=== PATIENT | female | born 1960 | race Caucasian/White ===

== ENCOUNTER → 2016-12-19 | Outpatient (REF) | payer BC | LOC: M LAB REF 12:20 | PROVIDERS: ATTEND Physician Assistant Medical | DX: J02.9 Acute pharyngitis, unspecified (principal) ==

== ENCOUNTER → 2018-02-04 | Outpatient (CLI) | payer BC ==
[~2018-02-04] MED LIST: ISOVUE-370 76% 100ML VIAL (Q9967) As Ordered
== END ==
LOC: M RAD 09:27
DX: R31.29 Other microscopic hematuria (principal)
CPT/HCPCS: Q9967

== ENCOUNTER → 2020-08-18 | Outpatient (CLI) | payer BC ==
[~2020-08-18] MED LIST changes: +ASPI81TA26 PO; +ATOR1TAB21; +BENA25TA5 PO; +BREO1INH3; -ISOVUE-370 76% 100ML VIAL (Q9967) As Ordered; +METO200T28 PO; +OMEP-221; +SYNT50TA; +VENTAER
== END ==
LOC: M LABSMTC 08:28
PROVIDERS: ATTEND Anesthesiology
DX: Z01.812 Encounter for preprocedural laboratory examination (principal); Z20.822 Contact with and (suspected) exposure to COVID-19

== ENCOUNTER 2020-08-23 09:39 | Day surgery (SDC) | payer BC ==
[~2020-08-23] VITALS: Ht 157.5 cm; Wt 72.6 kg
[~2020-08-23 09:39] MED LIST changes: +DUOVISC (0.50ML VISCOAT/0.55ML PROVISC) OPHTH KIT As Ordered ONE; +MIDAZOLAM INJ 2MG/2ML VIAL (J2250 PER 1MG) As Ordered ONE; +OFLOXACIN 0.3 % (OCUFLOX) OPTH SOL 5ML OD ONE; +PHENYLEPHRINE 2.5% OPHTH SOL 2ML OD ONE; +POVIDONE-IODINE 5% OPHTH PREP SOL 30ML As Ordered ONE; +PROPARACAINE 0.5% OPHTH SOL 15ML OD ONE; +TROPICAMIDE 1% OPHTH SOLN 2ML OD ONE; +fentaNYL 100 MCG/2 ML INJECTION (J3010) As Ordered ONE
--- OUTSIDE RECORDS SUMMARY | 2020-08-23 09:42 | CCD | Continuity of Care Document ---
Author Author Allergy Dept, [facility] Unknown Address [address] [address] Phone Unavailable Care Team Providers Care Pattern Cleaner Name Role Phone Peter Myers M.D. AUTM [phone] Problems Description No Information Available Social History Type Date Description Comments Sex Unknown Tobacco Use Start: Unknown Never Smoked Cigarettes ETOH Use Occasionally consumes alcohol Recreational Drug Use Denies Drug Use Allergies, Adverse Reactions, Alerts Active Allergies Reaction Severity Comments Date Cefdinir RASH 02/28/2015 Avelox 07/24/2008 Augmentin 07/15/2004 Inactive Allergies NKDA 01/28/2010 Medications Active Medications SIG Qnty Indications Ordering Provide r Date Medrol 4mg TBPK take as di rected 1units J20.9 Zaira Luciano NP 04/18/2019 Mucinex DM 30-600mg Tablets ER 12H R 1 by mouth twice a day 30tabs J20.9 Zaira Luciano NP 1 Azithromycin 250mg Tablets 500 mg by mouth on day one and 250 mg once a day days 2-5 6tabs J20.9 Zaira Luciano NP 04/18/2019 Aerochamber MV Misc u se with ventolin 1units Zaira Luciano NP 04/18/2019 Ventolin HFA 108(90Base) mcg/Act A erosol 2 inhalations as needed every 4-6 hours 8gm Zaira Paula NP 04/18/2019 Synthroid 50mcg Tablets 1 by mouth every day. 90tabs E03.9 Peter Myers M.D. 05/09 Lipitor 20mg Tablets 1 by mouth every night at bedtime. 90tabs E78.2 Peter Myers M.D. Aspirin 81mg Chewtabs qd Unknown Allergy Injections Unknown Flonase Allergy Relief 50mcg/Act Suspension 2 sprays each nostril daily Unknown Omeprazole 40mg Capsules DR 1 by mouth every day K21.9 Unknown Singulair 10mg Tablets 1 by mouth every day Unknown Immunizations Description No Information Available Vital Signs Date Vital Result Comment 08/02/2020 3:07pm Body Temperature 97.4 F 07/03/2020 3:16pm Body Temperature 97.2 F Results Description No Information Available Procedures Date Code Description Status 08/14/2020 95047 Allergy Antigens Single Or Multi ple Completed 08/02/2020 97572 Allergy Injection 2 Or More Comp leted 07/03/2020 60699 Allergy Injection 2 Or More Comp leted 06/21/2020 76279 Allergy Injection 2 Or More Comp leted 05/28/2020 91170 Allergy Antigens Single Or Multi ple Completed 05/24/2020 55349 Allergy Injection 2 Or More Comp leted 05/10/2020 07531 Allergy Injection 2 Or More Comp leted 04/26/2020 68552 Allergy Injection 2 Or More Comp leted 04/12/2020 24025 Allergy Injection 2 Or More Comp leted 03/29/2020 24697 Allergy Injection 2 Or More Comp leted 03/16/2020 77661 Allergy Antigens Single Or Multi ple Completed 03/15/2020 12542 Allergy Injection 2 Or More Comp leted 03/01/2020 36154 Allergy Injection 2 Or More Comp leted 02/16/2020 35775 Allergy Injection 2 Or More Comp leted Medical Devices Description No Information Available Encounters Description No Information Available Assessments Date Code Description Provider 08/14/2020 J30.1 Allergic rhinitis due to pollen Allergy Dept 08/14/2020 J30.2 Other seasonal allergic rhinitis Allergy Dept 08/14/2020 J30.81 Allergic rhinitis due to animal (cat) (dog) hair and dander Allergy Dept 08/02/2020 J30.1 Allergic rhinitis due to pollen Allergy Dept 08/02/2020 J30.2 Other seasonal allergic rhinitis Allergy Dept 08/02/2020 J30.81 Allergic rhinitis due to animal (cat) (dog) hair and dander Allergy Dept 07/03/2020 J30.1 Allergic rhinitis due to pollen Allergy Dept 07/03/2020 J30.2 Other seasonal allergic rhinitis Allergy Dept 07/03/2020 J30.81 Allergic rhinitis due to animal (cat) (dog) hair and dander Allergy Dept 06/21/2020 J30.1 Allergic rhinitis due to pollen Allergy Dept 06/21/2020 J30.2 Other seasonal allergic rhinitis Allergy Dept 06/21/2020 J30.81 Allergic rhinitis due to animal (cat) (dog) hair and dander Allergy Dept 05/28/2020 J30.1 Allergic rhinitis due to pollen Allergy Dept 05/28/2020 J30.2 Other seasonal allergic rhinitis Allergy Dept 05/28/2020 J30.81 Allergic rhinitis due to animal (cat) (dog) hair and dander Allergy Dept 05/24/2020 J30.1 Allergic rhinitis due to pollen Allergy Dept 05/24/2020 J30.2 Other seasonal allergic rhinitis Allergy Dept 05/24/2020 J30.81 Allergic rhinitis due to animal (cat) (dog) hair and dander Allergy Dept 05/10/2020 J30.1 Allergic rhinitis due to pollen Allergy Dept 05/10/2020 J30.2 Other seasonal allergic rhinitis Allergy Dept 05/10/2020 J30.81 Allergic rhinitis due to animal (cat) (dog) hair and dander Allergy Dept 04/26/2020 J30.1 Allergic rhinitis due to pollen Allergy Dept 04/26/2020 J30.2 Other seasonal allergic rhinitis Allergy Dept 04/26/2020 J30.81 Allergic rhinitis due to animal (cat) (dog) hair and dander Allergy Dept 04/12/2020 J30.1 Allergic rhinitis due to pollen Allergy Dept 04/12/2020 J30.2 Other seasonal allergic rhinitis Allergy Dept 04/12/2020 J30.81 Allergic rhinitis due to animal (cat) (dog) hair and dander Allergy Dept 03/29/2020 J30.1 Allergic rhinitis due to pollen Allergy Dept 03/29/2020 J30.2 Other seasonal allergic rhinitis Allergy Dept 03/29/2020 J30.81 Allergic rhinitis due to animal (cat) (dog) hair and dander Allergy Dept 03/16/2020 J30.1 Allergic rhinitis due to pollen Allergy Dept 03/16/2020 J30.2 Other seasonal allergic rhinitis Allergy Dept 03/16/2020 J30.81 Allergic rhinitis due to animal (cat) (dog) hair and dander Allergy Dept 03/15/2020 J30.1 Allergic rhinitis due to pollen Allergy Dept 03/15/2020 J30.2 Other seasonal allergic rhinitis Allergy Dept 03/15/2020 J30.81 Allergic rhinitis due to animal (cat) (dog) hair and dander Allergy Dept 03/01/2020 J30.1 Allergic rhinitis due to pollen Allergy Dept 03/01/2020 J30.2 Other seasonal allergic rhinitis Allergy Dept 03/01/2020 J30.81 Allergic rhinitis due to animal (cat) (dog) hair and dander Allergy Dept 02/16/2020 J30.1 Allergic rhinitis due to pollen Allergy Dept 02/16/2020 J30.2 Other seasonal allergic rhinitis Allergy Dept 02/16/2020 J30.81 Allergic rhinitis due to animal (cat) (dog) hair and dander Allergy Dept Plan of Treatment Future Appointment(s):* 10/22/2020 8:20 am - Allergy Dept at [facility] 210 * 08/30/2020 9:00 am - Allergy Dept at [place] [address] * 08/16/2020 3:00 pm - Allergy Dept at [place] [address] 04/18/2019 - Zaira Luciano NP* J20.9 Acute bronchitis, unspecified* New Medication:* Medrol 4 mg - take as directed * Mucinex DM 30-600 mg - 1 by mouth twice a day * Azithromycin 250 mg - 500 mg by mouth on day one and 250 mg once a day days 2-5 * Comments:* Patient has bronchitis. I am recommending a zpack , medrol dose pack and ventolin . She will not get her injection today. She may have her allergy injection next week if feeling better Functional Status Description No Information Available Mental Status Description No Information Available Referrals Description No Information Available
--- OUTSIDE RECORDS SUMMARY | 2020-08-23 09:42 | CCD ---
Continuity of Care Document (CCD) Created on: 08/21/2020 Hai Gilda External Reference #: [id number] : [id number] Sex: Female Author Author Allergy Dept, [facility] Unknown Address [address] [address] Phone Unavailable Care Team Providers Care Technician Trainee Name Role Phone Peter Myers M.D. AUTM [phone] Problems Description No Information Available Social History [...] Available Procedures Date Code Description Status 08/14/2020 80675 Allergy Antigens Single Or Multi ple Completed 08/02/2020 74043 Allergy Injection 2 Or More Comp leted 07/03/2020 48013 Allergy Injection 2 Or More Comp leted 06/21/2020 17708 Allergy Injection 2 Or More Comp leted 05/28/2020 99703 Allergy Antigens Single Or Multi ple Completed 05/24/2020 82913 Allergy Injection 2 Or More Comp leted 05/10/2020 28049 Allergy Injection 2 Or More Comp leted 04/26/2020 46163 Allergy Injection 2 Or More Comp leted 04/12/2020 39112 Allergy Injection 2 Or More Comp leted 03/29/2020 26469 Allergy Injection 2 Or More Comp leted 03/16/2020 09925 Allergy Antigens Single Or Multi ple Completed 03/15/2020 61417 Allergy Injection 2 Or More Comp leted 03/01/2020 10487 Allergy Injection 2 Or More Comp leted [...] 10/22/2020 8:20 am - Allergy Dept at [facility] 210 * 08/30/2020 9:00 am - Allergy Dept at [facility] 210 04/18/2019 - Zaira Luciano NP* J20.9 Acute [...]
--- OUTSIDE RECORDS SUMMARY | 2020-08-23 09:42 | CCD | Continuity of Care Document ---
Author Author Allergy Dept, [facility] Unknown Address [address] [address] Phone Unavailable Care Team Providers Care Truck Driving Instructor Name Role Phone Peter Myers M.D. AUTM Problems Description No Information Available Social History [...] Information Available Procedures Date Code Description Status 08/02/2020 61183 Allergy Injection 2 Or More Comp leted 07/03/2020 70362 Allergy Injection 2 Or More Comp leted 06/21/2020 63654 Allergy Injection 2 Or More Comp leted 05/28/2020 65394 Allergy Antigens Single Or Multi ple Completed 05/24/2020 32360 Allergy Injection 2 Or More Comp leted 05/10/2020 49801 Allergy Injection 2 Or More Comp leted 04/26/2020 68090 Allergy Injection 2 Or More Comp leted 04/12/2020 99248 Allergy Injection 2 Or More Comp leted 03/29/2020 66682 Allergy Injection 2 Or More Comp leted 03/16/2020 70892 Allergy Antigens Single Or Multi ple Completed 03/15/2020 85942 Allergy Injection 2 Or More Comp leted 03/01/2020 43983 Allergy Injection 2 Or More Comp leted 02/16/2020 65419 Allergy Injection 2 Or More Comp leted Medical Devices Description No Information Available Encounters Description No Information Available Assessments Date Code Description Provider 08/02/2020 J30.1 Allergic rhinitis due to pollen [...] Allergy Dept Plan of Treatment Future Appointment(s):* 08/30/2020 9:00 am - Allergy Dept at [facility] 210 * 08/16/2020 3:00 pm - Allergy Dept at [facility] 210 04/18/2019 - Zaira Luciano NP* J20.9 [...]
--- OUTSIDE RECORDS SUMMARY | 2020-08-23 09:42 | CCD | Continuity of Care Document ---
Author Author Allergy Dept, [facility] Unknown Address [address] [address] Phone Unavailable Care Team Providers Care Systems Mechanic Name Role Phone Peter Myers M.D. AUTM [phone] Problems Description No Information Available Social [...] Available Procedures Date Code Description Status 08/14/2020 16397 Allergy Antigens Single Or Multi ple Completed 08/02/2020 51644 Allergy Injection 2 Or More Comp leted 07/19/2020 69801 Allergy Injection 2 Or More Comp leted 07/03/2020 54701 Allergy Injection 2 Or More Comp leted 06/21/2020 73341 Allergy Injection 2 Or More Comp leted 05/28/2020 98600 Allergy Antigens Single Or Multi ple Completed 05/24/2020 86884 Allergy Injection 2 Or More Comp leted 05/10/2020 22157 Allergy Injection 2 Or More Comp leted 04/26/2020 31772 Allergy Injection 2 Or More Comp leted 04/12/2020 11253 Allergy Injection 2 Or More Comp leted 03/29/2020 96983 Allergy Injection 2 Or More Comp leted 03/16/2020 49002 Allergy Antigens Single Or Multi ple Completed 03/15/2020 13643 Allergy Injection 2 Or More Comp leted 03/01/2020 21373 Allergy Injection 2 Or More Comp leted [...] (cat) (dog) hair and dander Allergy Dept 07/19/2020 J30.1 Allergic rhinitis due to pollen Allergy Dept 07/19/2020 J30.2 Other seasonal allergic rhinitis Allergy Dept 07/19/2020 J30.81 Allergic rhinitis due to animal (cat) [...] 10/22/2020 8:20 am - Allergy Dept at [facility] 210 * 08/30/2020 9:00 am - Allergy Dept at [facility] 210 04/18/2019 - Zaira Luciano NP* [...]
--- OUTSIDE RECORDS SUMMARY | 2020-08-23 09:42 | CCD | Continuity of Care Document ---
Author Author Allergy Dept, [facility] Unknown Address [address] [address] Phone Unavailable Care Team Providers Care Mechanical Field Engineer Name Role Phone Peter Myers M.D. AUTM [...] Information Available Procedures Date Code Description Status 07/03/2020 14113 Allergy Injection 2 Or More Comp leted 06/21/2020 65825 Allergy Injection 2 Or More Comp leted 05/28/2020 81944 Allergy Antigens Single Or Multi ple Completed 05/24/2020 17069 Allergy Injection 2 Or More Comp leted 05/10/2020 95043 Allergy Injection 2 Or More Comp leted 04/26/2020 06710 Allergy Injection 2 Or More Comp leted 04/12/2020 18193 Allergy Injection 2 Or More Comp leted 03/29/2020 92993 Allergy Injection 2 Or More Comp leted 03/16/2020 13671 Allergy Antigens Single Or Multi ple Completed 03/15/2020 62368 Allergy Injection 2 Or More Comp leted 03/01/2020 30745 Allergy Injection 2 Or More Comp leted 02/16/2020 73545 Allergy Injection 2 Or More Comp leted 02/02/2020 08508 Allergy Injection 2 Or More Comp leted Medical Devices Description No Information Available Encounters Description No Information Available Assessments Date Code Description Provider 07/03/2020 J30.1 Allergic rhinitis due to pollen [...] (cat) (dog) hair and dander Allergy Dept 02/02/2020 J30.1 Allergic rhinitis due to pollen Allergy Dept 02/02/2020 J30.2 Other seasonal allergic rhinitis Allergy Dept 02/02/2020 J30.81 Allergic rhinitis due to animal (cat) (dog) hair and dander Allergy Dept Plan of Treatment Future Appointment(s):* 08/30/2020 9:00 am - Allergy Dept at [facility] 210 * 08/16/2020 3:00 pm - Allergy Dept at [facility] 210 * 08/06/2020 8:25 am - Allergy Dept at [facility] 210 04/18/2019 - Zaira Luciano NP* [...]
--- OUTSIDE RECORDS SUMMARY | 2020-08-23 09:43 | CCD | Continuity of Care Document ---
Author Author [facility] Organization Unknown Address [address] [place] [address] Phone [phone] Care Team Providers Care Visitor Information Assistant Name Role Phone Lauryn Keith MD AUTM [phone] Jaciel Wallace M.D. AUTM Osei Guerrier M.D. AUTM Mariam Moise MD AUTM [phone] Gerson Marx MD AUTM [phone] Jaciel Charles M.D. AUTM [phone] Ad Araujo MD AUTM [phone] Kelechi Parker MD AUTM [phone] Stephanie Arshad MD AUTM [phone] [facility] AUTM Tal Wallace M.D. AUTM [phone] Problems Active Problems Provider Date Hyperlipidemia Peter Myers MD Onset: 0 Hypothyroidism Peter Myers MD Onset: 0 Personal history of primary malignant neoplasm of breast Ana Lilia Caldwell PA-C Onset: 12/17/2010 Aortic valve disorder Onset: 08/08/2014 Chest pain Onset: 08/08/2014 Palpitations Onset: 05/14/2012 Electrocardiogram abnormal Onset: 2011 Pure hypercholesterolemia Onset: 012 Paroxysmal supraventricular tachycardia Dwight Bailey Onset: 06/15/2017 Microscopic hematuria Clifford Herrera Onset: 01/08/2018 Social History Type Date Description Comments Sex Female Tobacco Use Reviewed: 08/13/19 Never Smoked Cigarettes ETOH Use Currently consumes 4 glasses of wine weekly Recreational Drug Use Denies Drug Use Tobacco Use Reviewed: 02/29/20 Patient has never smoked Smoking Status Reviewed: 02/29/20 Patient has never smoked Allergies, Adverse Reactions, Alerts Active Allergies Reaction Severity Comments Date Augmentin 07/15/2004 Avelox Nausea 07/24/2008 Cefdinir Urticaria 05/08/2015 Medications Active Medications SIG Qnty Indications Ordering Provide r Date Breo Ellipta 200-25mcg/Inh Aerosol 1 in every day 90units R05 Osmar Gardner MD 020 Atorvastatin Calcium 20mg Tablets 1 by mouth every day 90tabs Peter Myers MD 02/06/20 20 Montelukast Sodium 10mg Tablets 1 by mouth every day 90tabs Peter Myers MD 07/26/19 20 Synthroid 50mcg Tablets 1 by mouth every day. 90tabs E03.9 Peter Myers MD 05/09/20 15 E03.8 Aspirin 81mg Chewtabs 1 PO qd Peter Myers MD 07/15/[address] 1 by mouth every day K21.9 Unknown Metoprolol Succinate ER 50mg Tablets ER 24HR 1/2 by mouth every day Unknown 00/0 Albuterol Sulfate HFA 108(90Base) mcg/Act Aerosol 1-2 puffs every 4-6 hours as needed sob/wheezing Unknown History Medications Atorvastatin Calcium 20mg Tablets 1 by mouth every day 30tabs E78.2 Peter Myers MD 02/06/20 20 - 06/28/2020 Breo Ellipta 100-25mcg/Inh Aerosol 1 in every day 90units R05 Osmar Gardner MD 020 - 06/28/2020 Immunizations CPT Code Status Date Vaccine Lot # [id number] Given 03/29/2020 Flu, Multi-Dose Vial W/Preservative (Age 6Mo And Up)Quad 0.5 42232 Given 06/14/2018 Adacel - Tdap [id number] 31110 Given 04/14/2014 Flu, Multi-Dose Vial W/Preservative (Age 6Mo And Up)Quad 0.5 60277 Given 04/13/2013 Flu Shot 3 Yrs And Above (Mu lti Dose Vial) 37377 Given 03/19/2011 Flu Shot 3 Yrs And Above (Mu lti Dose Vial) [id number] 75742 Given 12/13/2009 Adacel - Tdap [id number] 67613 Given 05/07/2006 Flu Shot 3 Yrs And Above (Mu lti Dose Vial) 05038 Refused 07/26/2019 Flu, Multi-Dose Vial W/Preservative (Age 6Mo And Up)Quad 0.5 29205 Refused 05/21/2017 Flu, Multi-Dose Vial W/Preservative (Age 6Mo And Up)Quad 0.5 84777 Refused 05/22/2016 Flu, Multi-Dose Vial W/Preservative (Age 6Mo And Up)Quad 0.5 Vital Signs Date Vital Result Comment 06/28/2020 3:18pm BP Systolic 124 mmHg BP Diastolic 78 mmHg Heart Rate 76 /min Body Temperature 98.5 F Respiratory Rate 12 /min Weight 166.00 lb Weight 75.298 kg Height 62 inches 5'2" BMI (Body Mass Index) 30.4 kg/m2 [place] Body Weight 110 lb 02/29/2020 8:11am BP Systolic 124 mmHg BP Diastolic 80 mmHg Heart Rate 90 /min Body Temperature 98.0 F Respiratory Rate 16 /min Weight 160.00 lb Weight 72.576 kg Height 62 inches 5'2" BMI (Body Mass Index) 29.3 kg/m2 [place] Body Weight 110 lb O2 % BldC Oximetry 98 % Results Test Acquired Date Facility Test Result H/L Range Note Laboratory test finding 06/28/2020 [facility] TSH 2.093 uIU/mL 0.350-4.940 Free T4 1.12 ng/dL 0.70-1.48 Lipid Panel(New) 06/28/2020 [facility] Cholesterol 196 mg/dL 112-200 1 Triglyceride 346 mg/dL High 1-200 2 HDL 52 mg/dL 30-85 3 Cholesterol/HDL 3.77 Low 4.00-6.70 NHDL 144.00 mg/dL High 0.00-100.00 4 Calculated LDL 74.80 mg/dL 20.00-130.00 5 Comprehensive Metabolic Panel 06/28/2020 [facility] Glucose 81.00 mg/dL 70.00-110.00 Urea Nitrogen 21 mg/dL 8-21 Creatinine 0.9 mg/dL 0.6-1.1 GFR 68.75 mL/min 6 Sodium 141 mmol/L 136-145 Potassium 4.5 mmol/L 3.5-5.1 Chloride 104 mmol/L 98-107 Total Protein 7.4 g/dL 6.4-8.3 Albumin 4.20 g/dL 3.30-5.00 Alanine Aminotransferase 16 U/L 0-55 Aspartate Aminotransferase 15 U/L 5-34 Alkaline Phosphatase 113 U/L 40-150 Carbon Dioxide 28.00 mmol/L 22.00-31.00 Albumin/Globulin 1.31 Ratio Osmolality 294.00 275.00-295.00 Calcium 9.50 mg/dL 8.90-10.40 Total Bilirubin 0.4 mg/dL 0.2-1.2 Globulin 3.20 2.30-4.20 BUN/Creatinine 23.60 Ratio CBC/Automated Differential 01/20/2020 [facility] WBC 9.78 k/uL 4.60-10.20 Abs Neut 6.07 2.00-7.50 % Neut 62.1 % 37.0-80.0 Abs Lymphs 2.12 K/UL 1.20-4.80 % Lymphs 21.7 % 10.0-50.0 Abs Monos 0.992 High 0.000-0.900 % Monos 10.10 % 0.00-12.00 Abs Eos 0.485 0.000-0.700 % Eos 4.96 % 0.00-7.00 Abs Basos 0.109 0.000-0.200 % Baso 1.12 % 0.00-4.00 RBC 4.85 m/uL 4.04-6.13 Hemoglobin 14.0 g/dL 12.2-18.1 Hematocrit 41.1 % 37.7-47.0 MCV 84.7 fL 80.0-97.0 MCH 28.9 pg 27.0-31.2 MCHC 34.1 g/dL 31.8-35.4 RDW 11.9 % 11.6-14.8 Platelet 251 K/uL 142-424 MPV 7.4 fL 0.0-99.9 Comprehensive Metabolic Panel 01/20/2020 [facility] Glucose 103.00 mg/dL 70.00-110.00 Urea Nitrogen 15 mg/dL 7-19 Creatinine 1.0 mg/dL 0.6-1.1 GFR 60.89 mL/min 7 Sodium 141 mmol/L 136-145 Potassium 4.2 mmol/L 3.5-5.1 Chloride 105 mmol/L 98-107 Total Protein 7.3 g/dL 6.4-8.3 Albumin 4.30 g/dL 3.30-5.00 Alanine Aminotransferase 13 U/L 0-55 Aspartate Aminotransferase 19 U/L 5-34 Alkaline Phosphatase 105 U/L 40-150 Carbon Dioxide 24.00 mmol/L 22.00-31.00 Albumin/Globulin 1.43 Ratio Osmolality 293.08 275.00-295.00 Calcium 9.20 mg/dL 8.90-10.40 Total Bilirubin 0.6 mg/dL 0.2-1.2 Globulin 3.00 2.30-4.20 BUN/Creatinine 15.15 Ratio Laboratory test finding 01/20/2020 [facility] Screen with Reflex NEGATIVE (Neg) 8 Ftsao-7-Kpywueaatkh,Ser 130.0 mg/dL (90-200) 9 TSH 2.272 uIU/mL 0.350-4.940 Free T4 1.06 ng/dL 0.70-1.48 1 GOAL LESS THAN 200 2 GOAL LESS THAN 200 3 GOAL GREATER THAN 45 4 GOAL LESS THAN 100 5 GOAL LESS THAN 100 6 NORMAL FUNCTION OR MILD ROBLES L DISEASE:>60 ml/min ADVANCED RENAL DISEASE:15-59 ml/min RENAL FAILURE:<15 ml/min 7 NORMAL FUNCTION OR MILD ROBLES L DISEASE:>60 ml/min ADVANCED RENAL DISEASE:15-59 ml/min RENAL FAILURE:<15 ml/min 8 Unless otherwise specified, testing performed by [place] [address] 9 Unless otherwise specified, testing performed by [facility] [place] [address] Procedures Date Code Description Status 03/14/2020 [id number] Mammogram Completed 01/20/2020 83785 Spirometry Completed 02/17/2013 [id number] Bone Mineral Density Test Comple jeannine 11/19/2009 [id number] Mammogram Completed 07/13/2009 [id number] Colonoscopy Completed 11/20/2008 [id number] Mammogram Completed Medical Devices Description No Information Available Encounters Type Date Location Provider Dx Diagnosis Office Visit 06/28/2020 3:[address]p [address] Peter Myers MD E78 .5 Hyperlipidemia, unspecified E03.9 Hypothyroidism, unspecified J45.998 Other asthma Office Visit 02/29/2020 8:[address]a [address] Osmar Gardner MD R06.02 Shortness of breath Office Visit 01/20/2020 1:[address]p [address] Osmar Gardner MD R05 Cough R06.02 Shortness of breath J45.998 Other asthma Assessments Date Code Description Provider 06/28/2020 E78.5 Hyperlipidemia, unspecified Will Myers MD 06/28/2020 E03.9 Hypothyroidism, unspecified Will Myers MD 06/28/2020 J45.998 Other asthma Peter ty MD 02/29/2020 R06.02 Shortness of breath Osmar Gardner MD 01/20/2020 R05 Cough Osmar medeiros MD 01/20/2020 R06.02 Shortness of breath Osmar Gardner MD 01/20/2020 J45.998 Other asthma Osmar medeiros MD Plan of Treatment 06/28/2020 - Peter Myers MD* E78.5 Hyperlipidemia, unspecified* Comments:* Will check labs and adjust medication as indicated. Continue low fat low cholesterol diet, exercise as tolerated. * Follow up:* * E03.9 Hypothyroidism, unspecified* Comments:* check labs, adjust medication if indicated * Follow up:* * J45.998 Other asthma* Comments:* Spirometry shows copd, she may have component of both copd & asthma, thuswill Increase Breo to 200-25 per day. If this is helping, follow up in November/December. Sooner with concerns. * All * New Medication:* Breo Ellipta 200-25 mcg/Inh - 1 in every day Functional Status Functional Condition Comment Date Status Glasses Active Hearing Aid in left ear Active Mental Status Description No Information Available Referrals Refer to Reason for Referral Status Appt Date [facility] chest w/o contrast to r/o interstitial lung disease. Closed [address] [place] [address] [phone]
--- OUTSIDE RECORDS SUMMARY | 2020-08-23 09:43 | CCD | Continuity of Care Document ---
Author Author Gilda MYERS MD Organization Unknown Address [address] [place] [address] Phone [phone] Care Team Providers Care Network Designer Name Role Phone Lauryn Keith MD AUTM [phone] Jaciel Wallace M.D. AUTM [phone] Osei Guerrier M.D. AUTM [phone] Mariam Moise MD AUTM [phone] Gerson Marx MD AUTM [phone] Jaciel Charles M.D. AUTM [phone] Ad Araujo MD AUTM [phone] Kelechi Parker MD AUTM [phone] Stephanie Arshad MD AUTM [phone] [facility]M Tal Wallace M.D. AUTM [phone] Problems Active Problems Provider Date Hyperlipidemia Peter [...] CPT Code Status Date Vaccine Lot # [id number] Given 03/29/2020 Flu, Multi-Dose Vial W/Preservative (Age 6Mo And Up)Quad 0.5 69988 Given 06/14/2018 Adacel - Tdap [id number] 63327 Given 04/14/2014 Flu, Multi-Dose Vial W/Preservative (Age 6Mo And Up)Quad 0.5 07631 Given 04/13/2013 Flu Shot 3 Yrs And Above (Mu lti Dose Vial) 51445 Given 03/19/2011 Flu Shot 3 Yrs And Above (Mu lti Dose Vial) [id number] 56443 Given 12/13/2009 Adacel - Tdap [id number] 17938 Given 05/07/2006 Flu Shot 3 Yrs And Above (Mu lti Dose Vial) 11381 Refused 07/26/2019 Flu, Multi-Dose Vial W/Preservative (Age 6Mo And Up)Quad 0.5 33210 Refused 05/21/2017 Flu, Multi-Dose Vial W/Preservative (Age 6Mo And Up)Quad 0.5 56147 Refused 05/22/2016 Flu, Multi-Dose Vial W/Preservative (Age 6Mo And Up)Quad 0.5 Vital Signs Date Vital Result Comment 06/28/2020 3:18pm BP Systolic 124 mmHg BP Diastolic 78 mmHg Heart Rate 76 /min Body Temperature 98.5 F Respiratory Rate 12 /min Weight 166.00 lb Weight 75.298 kg Height 62 inches 5'2" BMI (Body Mass Index) 30.4 kg/m2 [place] [facility] Weight 110 lb 02/29/2020 8:11am BP Systolic 124 mmHg BP Diastolic 80 mmHg Heart Rate 90 /min Body Temperature 98.0 F Respiratory Rate 16 /min Weight 160.00 lb Weight 72.576 kg Height 62 inches 5'2" BMI (Body Mass Index) 29.3 kg/m2 [place] [facility] Weight 110 lb O2 % BldC Oximetry 98 % Results Test Acquired Date Facility Test Result H/L Range Note Laboratory test finding 06/28/2020 [facility] TSH <pending> Free T4 <pending> CBC/Automated Differential 01/20/2020 [facility] WBC 9.78 [...] Creatinine 1.0 mg/dL 0.6-1.1 GFR 60.89 mL/min 1 Sodium 141 mmol/L 136-145 Potassium 4.2 mmol/L [...] BUN/Creatinine 15.15 Ratio Laboratory test finding 01/20/2020 [facility] Makayla Screen with Reflex NEGATIVE (Neg) 2 Velvn-5-Fmvcojfiqkz,Ser 130.0 mg/dL (90-200) 3 TSH 2.272 uIU/mL 0.350-4.940 Free T4 1.06 ng/dL 0.70-1.48 1 NORMAL FUNCTION OR MILD ROBLES L DISEASE:>60 ml/min ADVANCED RENAL DISEASE:15-59 ml/min RENAL FAILURE:<15 ml/min 2 Unless otherwise specified, testing performed by Laboratory [facility] [address] [place] [address] 3 Unless otherwise specified, testing performed by Laboratory [facility] [address] [place] [address] Procedures Date Code Description Status 03/14/2020 03404161 Mammogram Completed 01/20/2020 25410 Spirometry Completed 02/17/2013 970702490 Bone Mineral Density Test Comple jeannine 11/19/2009 [id number] Mammogram Completed 07/13/2009 [id number] Colonoscopy Completed 11/20/2008 [id number] Mammogram Completed Medical Devices Description No Information Available Encounters Type Date Location Provider Dx Diagnosis Office Visit 02/29/2020 8:00a [address] B [...] diet, exercise as tolerated. * Follow up:* Followup:. (Follow up) * E03.9 Hypothyroidism, unspecified* Follow up:* Followup:. (Follow up) * J45.998 Other asthma* Comments:* Increase Breo to 200-25 per day. If [...] to r/o interstitial lung disease. Closed [address] [place] [address] [phone]
--- OUTSIDE RECORDS SUMMARY | 2020-08-23 09:43 | CCD | Continuity of Care Document ---
Author Author Allergy Dept, [facility] Organization Unknown Address [address] [address] Phone Unavailable Care Team Providers Care Head Of English Name Role Phone Peter Myers M.D. AUTM [...] Available Vital Signs Date Vital Result Comment 07/03/2020 3:16pm Body Temperature 97.2 F 06/21/2020 3:07pm Body Temperature 97.3 F Results Description No Information Available Procedures Date Code Description Status 06/21/2020 59716 Allergy Injection 2 Or More Comp leted 05/28/2020 90767 Allergy Antigens Single Or Multi ple Completed 05/24/2020 25216 Allergy Injection 2 Or More Comp leted 05/10/2020 45197 Allergy Injection 2 Or More Comp leted 04/26/2020 71399 Allergy Injection 2 Or More Comp leted 04/12/2020 41513 Allergy Injection 2 Or More Comp leted 03/29/2020 33301 Allergy Injection 2 Or More Comp leted 03/16/2020 04968 Allergy Antigens Single Or Multi ple Completed 03/15/2020 90758 Allergy Injection 2 Or More Comp leted 03/01/2020 45621 Allergy Injection 2 Or More Comp leted 02/16/2020 30198 Allergy Injection 2 Or More Comp leted 02/02/2020 75750 Allergy Injection 2 Or More Comp leted 01/03/2020 99665 Allergy Injection 2 Or More Comp leted Medical Devices Description No Information Available Encounters Description No Information Available Assessments Date Code Description Provider 06/21/2020 J30.1 Allergic rhinitis due to pollen [...] (cat) (dog) hair and dander Allergy Dept 01/03/2020 J30.1 Allergic rhinitis due to pollen Allergy Dept 01/03/2020 J30.2 Other seasonal allergic rhinitis Allergy Dept Plan of Treatment Future Appointment(s):* 08/02/2020 3:00 pm - Allergy Dept at [facility] 210 * 07/19/2020 3:00 pm - Allergy Dept at [facility] 210 * 08/06/2020 8:25 am [facility] [...]
--- OUTSIDE RECORDS SUMMARY | 2020-08-23 09:43 | CCD ---
Author Author Mitesh Robles MD [facility] Organization Mitesh Robles MD [facility] Address [address] [address] Phone Care Team Providers Care Senior Capital Markets Specialist Name Role Phone Joseph Anguiano DO Unavailable [phone] Reason for Referral No Reason for Referral Recorded Problems Includes: Active, inactive, and resolved Problems All Visits Onset Date - Time Resolved Date - Time Provider Co ndition Status Essential Hypertension 06/20/2020 - 12:00AM Joseph maravilla DO Active Vitreous Disorders Degeneration 06/20/2020 - 12:00AM Jv Anguiano DO Active Macular Degeneration Nonexudative Bilateral Early Dry Stage 01/17/2019 - 12:00AM Joseph Anguiano DO Active Cataract Senile Anterior Subcapsular Polar 01/17/2019 - 12:00AM Joseph Anguiano DO Active Cataract Senile Cortical 01/17/2019 - 12:00AM Joseph Anguiano DO Active Chorioretinal Scar 01/17/2019 - 12:00AM Joseph tan DO Active Dry Eye Syndrome 01/17/2019 - 12:00AM Joseph reyes DO Active Plan of Treatment Future Appointments Date Time Location Provider 1 WK PREOP FOR SURGERY 08/14/2020 12:40PM Mitesh Kong [facility] Joseph Anguiano DO Extracapsular cataract removal w/IOL implant 08/23/2020 7:1 0AM [facility] Joseph Anguiano DO SAME DAY POST OP 08/23/2020 1:20PM [facility] Joseph Anguiano DO 1 Week Post OP 08/31/2020 12:40PM Mitesh Robles MD [facility] Jv Anguiano DO Assessments Includes: Assessments for all patient encounters Findings Encounter Date Anterior subcapsular polar senile cataract 6 Month Fol low-Up with Joseph Anguiano DO 06/18/2020 Chorioretinal scar 6 Month Follow-Up with Joseph Anguiano DO 06/18/2020 Cortical senile cataract 6 Month Follow-Up with Joseph dahl DO 06/18/2020 Dry eye syndrome 6 Month Follow-Up with Joseph Anguiano DO 06/18/2020 Early dry stage nonexudative macular degeneration of b oth eyes 6 Month Follow-Up with Joseph Anguiano DO 06/18/2020 Essential hypertension 6 Month Follow-Up with Joseph Marin ein DO 06/18/2020 Vitreous degeneration 6 Month Follow-Up with Joseph Curran in DO 06/18/2020 Anterior subcapsular polar senile cataract 6 Month Fol low-Up with OCT Retina with Joseph Anguiano DO 07/20/2019 Chorioretinal scar 6 Month Follow-Up with OCT Retina with Jv Anguiano DO 07/20/2019 Cortical senile cataract 6 Month Follow-Up with OCT R etina with Joseph Anguiano DO 07/20/2019 Dry eye syndrome 6 Month Follow-Up with OCT Retina with aristeo Anguiano DO 07/20/2019 Early dry stage nonexudative macular degeneration of b oth eyes 6 Month Follow-Up with OCT Retina with Joseph Anguiano DO 07/20/2019 Essential hypertension 6 Month Follow-Up with OCT R etina with Joseph Anguiano DO 07/20/2019 Anterior subcapsular polar senile cataract NEW PATIENT WITH REFERRAL with Joseph Anguiano DO 01/17/2019 Chorioretinal scar NEW PATIENT WITH REFERRAL with Joseph schmitz DO 01/17/2019 Cortical senile cataract NEW PATIENT WITH REFERRAL with Negro Anguiano DO 01/17/2019 Dry eye syndrome NEW PATIENT WITH REFERRAL with Joseph schmitz DO 01/17/2019 Early dry stage nonexudative macular degeneration of b oth eyes NEW PATIENT WITH REFERRAL with Joseph Anguiano DO 01/17/2019 Essential hypertension NEW PATIENT WITH REFERRAL with Joni Anguiano DO 01/17/2019 Instructions Instructions not supported for this document typeNo Instructions Recorded Medical Equipment - Implanted Devices Includes: Current and historical DevicesNo Medical Equipment Recorded Medications Includes: Current and historical Medications Current Medications (continue as prescribed) Breo Ellipta 100-25 MCG/INH Inhalation Aerosol Powder Breath Activated 06/18/2020 Provider: Diagnosis: 1 puff daily Montelukast Sodium 10 MG Oral Tablet 06/18/2020 Pro vider: Diagnosis: Metoprolol 25 MG Oral Tablet 07/20/2019 Provider: Diagnosis: Synthroid 50MCG Oral Tablet 01/17/2019 Provider: Diagnosis: Atorvastatin 20 MG Oral Tablet 01/17/2019 Provider: Diagnosis: Aspirin 81MG Oral Tablet Delayed Release 01/17/2019 Provider: Diagnosis: Omeprazole 40MG Oral Capsule Delayed Release 01/17/2019 Provider: Diagnosis: diphenhydrAMINE HCl 25MG Oral Tablet 01/17/2019 Pro vider: Diagnosis: Past Medications on file Metoprolol 50 mg Oral Tablet 01/17/2019 - 07/20/2019 Provide r: Diagnosis: Medications Administered Includes: Administered Medications in patient's chartNo Administered Medications Recorded Vital Signs Includes: Vital Signs from 06/20/2019 through 06/20/2020No Vital Signs Recorded For Specified Dates Results Includes: Results from 06/20/2019 through 06/20/2020No Results Recorded For Specified Dates History of Present Illness History of Present Illness not supported for this document typeNo History of Present Illness Recorded Social History Description Last Updated Alcohol use 1-2 drinks a week 06/18/2020 No tobacco use 06/18/2020 Not using drugs 06/18/2020 Smoking status : Never smoker 06/18/2020 Procedures and Surgical History Includes: Procedures from 06/20/2019 through 06/20/2020 Procedures Code Diagnosis Performing Provider Service Location Service Date Intermediate Eye Exam Established Patient 07565 Nexdtve age-related mclr degn, bilateral, early dry stage, Essential (primary) hypertension, Anterior subcapsular polar age-related cataract, bilateral, Cortical age-related cataract, bilateral Joseph Anguiano DO 06/18/2020 Comprehensive eye exam established patient (Signi/Sep Eval. & Man.) 85470 Nexdtve age-related mclr degn, bilateral, early dry stage, Essential (primary) hypertension, Anterior subcapsular polar age-related cataract, bilateral, Cortical age-related cataract, bilateral Joseph Walker MD [facility] 07/20/2019 [facility] Ret[facility], with interpretation and re port (WAIVER OF LIABILITY ON FILE (ABN)) 15168 Nexdtve age-related mclr deg n, bilateral, early dry stage, Essential (primary) hypertension Joseph Rod MD [facility] 07/20/2019 Surgical History Last Updated Surgical / procedural history 1989, Mastectomy 1996, Hysterectomy 2010, Heart Ablation 2016 06/20/2020 Medical History Includes: Medical History in patient's chart Description Last Updated Currently wearing eyeglasses 06/18/2020 History of essential hypertension 06/18/2020 History of hyperlipidemia 06/18/2020 History of hypertension 06/18/2020 Hypothyroidism 06/18/2020 No recent change in medical history 06/18/2020 Reported medical history Breast Cancer 1996, acid ref lux 06/18/2020 Family History Includes: Family History in patient's chart Description Last Updated Maternal history of arthritis 06/18/2020 Maternal history of cataract 06/18/2020 Maternal history of thyroid disorder 06/18/2020 Paternal history of family history of cancer 0 Paternal history of heart disease 06/18/2020 Review of Systems Review of Systems not supported for this document typeNo Review of Systems Recorded Mental Status Mental Status not supported for this document type Description Oriented to time, place, and person Functional Status Functional Status not supported for this document typeNo Functional Status Recorded Physical Exam Physical Exam not supported for this document typeNo Physical Exam Recorded Immunizations Includes: Immunizations in patient's chartNo Immunizations Recorded Allergies Includes: Active, inactive, and resolved Allergies Substance Type Reaction Onset Date - Time Resolved Date - Ti me Status Avalox Allergy 07/20/2019 - 12:00AM Acti ve Augmentin Allergy 01/17/2019 - 12:00AM Acti ve Encounters Includes: Encounters from 06/20/2019 through 06/20/2020 Encounter Provider Location Date Check-In Time Check-Out Time D iagnosis 6 Month Follow-Up Joseph Rod MD [facility] 01/2020 9:51AM 11:35AM Essential Hypertension, Tegan ract Senile Anterior Subcapsular Polar, Cataract Senile Cortical, Dry Eye Syndrome, Chorioretinal Scar, Macular Degeneration Nonexudative Bilateral Early Dry Stage, Vitreous Disorders Degeneration 6 Month Follow-Up with OCT Retina Joseph Chowdhury MD [facility] 07/20/2019 2:52PM 4:06PM Essential Hypertensi on, Macular Degeneration Nonexudative Bilateral Early Dry Stage, Dry Eye Syndrome, Chorioretinal Scar, Cataract Senile Anterior Subcapsular Polar, Cataract Senile Cortical Insurance Includes: Active Insurance Policies Plan Name Member ID Group # Subscriber Relationship Effective Da barrera 1 - [employer] CARLITO/ROMERO [id number] [facility] Advance Directives Includes: Current Advance DirectivesNo Advance Directives Recorded Health Concerns Includes: Active Health ConcernsNo Active Health Concerns Recorded Goals Includes: Active GoalsNo Active Goals Recorded Interventions Includes: Interventions for active GoalsNo Interventions Recorded Evaluations & Outcomes Includes: Evaluations & Outcomes for active GoalsNo Outcomes Recorded
--- OUTSIDE RECORDS SUMMARY | 2020-08-23 09:43 | CCD | Continuity of Care Document ---
Author Author Allergy Dept, [facility] Organization Unknown Address [address] [address] Phone Unavailable Care Team Providers Care Butter Wrapper Name Role Phone Peter Myers M.D. AUTM [phone] Problems Description No Information Available Social History [...] Available Vital Signs Date Vital Result Comment 06/21/2020 3:07pm Body Temperature 97.3 F 05/10/2020 3:04pm Body Temperature 98.1 F Results Description No Information Available Procedures Date Code Description Status 05/28/2020 54391 Allergy Antigens Single Or Multi ple Completed 05/24/2020 05807 Allergy Injection 2 Or More Comp leted 05/10/2020 48359 Allergy Injection 2 Or More Comp leted 04/26/2020 12409 Allergy Injection 2 Or More Comp leted 04/12/2020 14654 Allergy Injection 2 Or More Comp leted 03/29/2020 24565 Allergy Injection 2 Or More Comp leted 03/16/2020 14422 Allergy Antigens Single Or Multi ple Completed 03/15/2020 43829 Allergy Injection 2 Or More Comp leted 03/01/2020 12662 Allergy Injection 2 Or More Comp leted 02/16/2020 24787 Allergy Injection 2 Or More Comp leted 02/02/2020 25522 Allergy Injection 2 Or More Comp leted 01/03/2020 50443 Allergy Injection 2 Or More Comp leted Medical Devices Description No Information Available Encounters Description No Information Available Assessments Date Code Description Provider 05/28/2020 J30.1 Allergic rhinitis due to pollen [...] Allergy Dept Plan of Treatment Future Appointment(s):* 07/03/2020 3:15 pm - Allergy Dept at [facility] 210 * 08/06/2020 8:25 am - Allergy Dept at [place] [address] 04/18/2019 - Zaira Luciano NP* J20.9 Acute [...]
--- OUTSIDE RECORDS SUMMARY | 2020-08-23 09:43 | CCD | Continuity of Care Document ---
Author Author Allergy Dept, [facility] [place] Unknown Address [address] [address] Phone Unavailable Care Team Providers Care Sort Worker Name Role Phone Peter Myers M.D. AUTM [...] Available Procedures Date Code Description Status 07/03/2020 60920 Allergy Injection 2 Or More Comp leted 06/21/2020 97715 Allergy Injection 2 Or More Comp leted 05/28/2020 93098 Allergy Antigens Single Or Multi ple Completed 05/24/2020 35378 Allergy Injection 2 Or More Comp leted 05/10/2020 82825 Allergy Injection 2 Or More Comp leted 04/26/2020 39276 Allergy Injection 2 Or More Comp leted 04/12/2020 94533 Allergy Injection 2 Or More Comp leted 03/29/2020 15723 Allergy Injection 2 Or More Comp leted 03/16/2020 97500 Allergy Antigens Single Or Multi ple Completed 03/15/2020 77613 Allergy Injection 2 Or More Comp leted 03/01/2020 54413 Allergy Injection 2 Or More Comp leted 02/16/2020 16704 Allergy Injection 2 Or More Comp leted 02/02/2020 65825 Allergy Injection 2 Or More Comp [...] 08/02/2020 3:00 pm - Allergy Dept at [facility] 210 * 08/06/2020 8:25 am - Allergy Dept at [place] [address] 04/18/2019 - Zaira Luciano NP* J20.9 Acute [...]
--- OUTSIDE RECORDS SUMMARY | 2020-08-23 09:43 | CCD | Continuity of Care Document ---
Author Author Gilda MYERS MD Organization Unknown Address [address] [place] [address] Phone [phone] Care Team Providers Care Culvert Installer Name Role Phone Lauryn Keith MD AUTM [phone] Jaciel Wallace M.D. AUTM [phone] Osei Guerrier M.D. AUTM Mariam Moise MD AUTM [phone] Gerson Marx MD AUTM [phone] Jaciel Charles M.D. AUTM [phone] Ad Araujo MD AUTM [phone] eKlechi Parker MD AUTM [phone] Stephanie Arshad MD AUTM [phone] [facility] AUTM [phone] Tal Wallace M.D. AUTM [phone] Problems Active Problems Provider Date Hyperlipidemia Peter [...] CPT Code Status Date Vaccine Lot # [id number] Given 03/29/2020 Flu, Multi-Dose Vial W/Preservative (Age 6Mo And Up)Quad 0.5 83901 Given 06/14/2018 Adacel - Tdap [id number] 04760 Given 04/14/2014 Flu, Multi-Dose Vial W/Preservative (Age 6Mo And Up)Quad 0.5 39419 Given 04/13/2013 Flu Shot 3 Yrs And Above (Mu lti Dose Vial) 50990 Given 03/19/2011 Flu Shot 3 Yrs And Above (Mu lti Dose Vial) [id number] 78483 Given 12/13/2009 Adacel - Tdap [id number] 63139 Given 05/07/2006 Flu Shot 3 Yrs And Above (Mu lti Dose Vial) 25751 Refused 07/26/2019 Flu, Multi-Dose Vial W/Preservative (Age 6Mo And Up)Quad 0.5 59718 Refused 05/21/2017 Flu, Multi-Dose Vial W/Preservative (Age 6Mo And Up)Quad 0.5 13164 Refused 05/22/2016 Flu, Multi-Dose Vial W/Preservative (Age 6Mo And Up)Quad 0.5 Vital Signs Date Vital Result Comment 06/28/2020 3:18pm BP Systolic 124 mmHg BP Diastolic 78 mmHg Heart Rate 76 /min Body Temperature 98.5 F Respiratory Rate 12 /min Weight 166.00 lb Weight 75.298 kg Height 62 inches 5'2" BMI (Body Mass Index) 30.4 kg/m2 [place] Body Weight 110 lb 02/29/2020 8:11am BP Systolic 124 mmHg BP Diastolic 80 mmHg Heart Rate 90 /min Body Temperature 98.0 F Respiratory Rate 16 /min Weight 160.00 lb Weight 72.576 kg Height 62 inches 5'2" BMI (Body Mass Index) 29.3 kg/m2 [place] Body Weight 110 lb O2 % BldC [...] Makayla Screen with Reflex NEGATIVE (Neg) 8 Cyjul-6-Hxifinrwkrm,Ser 130.0 mg/dL (90-200) 9 TSH 2.272 uIU/mL [...] Unless otherwise specified, testing performed [place] [address] 9 Unless otherwise specified, testing performed by Laboratory [facility] [place] [address] Procedures Date Code Description Status 06/28/2020 64143 Oximetry Single Determination Co mpleted 03/14/2020 64186491 Mammogram Completed 01/20/2020 78989 Spirometry Completed 02/17/2013 231051376 Bone Mineral Density Test Comple jeannine 11/19/2009 81291566 Mammogram Completed 07/13/2009 83918166 Colonoscopy Completed 11/20/2008 [id number] Mammogram Completed Medical Devices Description No Information [...] to r/o interstitial lung disease. Closed [address] [place] [address] [phone]
--- OUTSIDE RECORDS SUMMARY | 2020-08-23 09:43 | CCD | Continuity of Care Document ---
Author Organization Unknown Address Unknown Phone Unavailable Care Team Providers Care Glove Factory Sewer Name Role Phone Peter Myers M.D. AUTM [phone] Problems Active Problems Provider Date Aortic valve disorder Onset: 08/08/2014 Chest pain Onset: 08/08/2014 Palpitations Onset: 05/14/2012 Electrocardiogram abnormal Onset: 2011 Pure hypercholesterolemia Onset: 012 Personal history of primary malignant neoplasm of breast Lindy Rosana magallanes P.A. Onset: 12/17/2010 Hyperlipidemia Peter Myers M.D. Onset: 0 Hypothyroidism Peter Myers M.D. Onset: 0 Kidney stone Clifford Vera MD Onset: 02/15/2018 Microscopic hematuria Clifford Vera MD Onset: 8 Social History Type Date Description Comments Sex Unknown Tobacco Use Reviewed: 04/12/20 Never Smoked Cigarettes Smoking Status Reviewed: 04/12/20 Never Smoked Cigarettes ETOH Use Consumes 2 glasses of wine per w [place] Allergies, Adverse Reactions, Alerts Active Allergies Reaction Severity Comments Date Cefdinir Urticaria 05/08/2015 Avelox 07/24/2008 Augmentin 07/15/2004 Medications Active Medications SIG Qnty Indications Ordering Provide r Date Synthroid 50mcg Tablets 1 by mouth every day. 90tabs E03.9 Peter Myers M.D. 05/09/20 15 Lipitor 20mg Tablets 1 by mouth every night at bedtime. 90tabs E78.2 Peter Myers M.D. [address] 1 PO qd Peter Myers M.D. 07/15/[address] 1 by mouth every 3rd day 30caps K21.9 Peter Myers M.D. 00 Flonase Allergy Relief 50mcg/Act Suspension 1 sprays each nostril every day Unknown Allergy Medication Unknown Metoprolol Succinate ER 50mg Tablets ER 24HR take 1/2 tablet by mouth daily Unknown Montelukast Sodium 10mg Tablets Take One Tablet By Mouth Every Day Unknown Breo Ellipta 100-25mcg/Inh Aerosol Inhale One puff By Mouth Every Day Unknown Immunizations Description No Information Available Vital Signs Date Vital Result Comment 04/12/2020 10:45am Height 62 inches 5'2" Weight 160.00 lb Weight 72.576 kg BMI (Body Mass Index) 29.3 kg/m2 BP Systolic 163 mmHg BP Diastolic 92 mmHg Heart Rate 96 /min Body Temperature 97.6 F 02/17/2019 10:01am Height 62 inches 5'2" Weight 160.00 lb Weight 72.576 kg BMI (Body Mass Index) 29.3 kg/m2 BP Systolic 120 mmHg BP Diastolic 74 mmHg Heart Rate 83 /min Results Test Acquired Date Facility Test Result H/L Range Note Laboratory test finding 06/28/2020 N2N/CCD Import TSH 2.093 uIU/mL 0.350-4.940 Free T4 1.12 ng/dL 0.70-1.48 Comprehensive Metabolic Panel 06/28/2020 N2N/CCD Im port Glucose 81.00 mg/dL 70.00-110.00 Urea Nitrogen 21 mg/dL 8-21 Creatinine 0.9 mg/dL 0.6-1.1 GFR 68.75 mL/min 1 Sodium 141 mmol/L 136-145 Potassium 4.5 mmol/L 3.5-5.1 Chloride 104 mmol/L 98-107 Total Protein 7.4 g/dL 6.4-8.3 Albumin 4.20 g/dL 3.30-5.00 Alanine Aminotransferase 16 U/L 0-55 Aspartate Aminotransferase 15 U/L 5-34 Alkaline Phosphatase 113 U/L 40-150 Carbon Dioxide 28.00 mmol/L 22.00-31.00 Albumin/Globulin 1.31 Ratio Osmolality 294.00 1 275.00-295.00 Calcium 9.50 mg/dL 8.90-10.40 Total Bilirubin 0.4 mg/dL 0.2-1.2 Globulin 3.20 1 2.30-4.20 BUN/Creatinine 23.60 Ratio Urine Microscopy 04/12/2020 [facility] [place] [address] [phone] Urine WBC 3-5 /HPF 0 - 5 Urine RBC 0-2 /HPF 0-2 Bacteria 1+ /HPF Neg Crystals NEG /HPF Neg Epithelial Cells 3+ /HPF Neg Sperm NEG /HPF Neg Yeast NEG /HPF Neg UACast NEG /LPF Neg 230 Ua Routine 04/12/2020 [facility] REF TO DR ADDRESS ON ORDER FOR (370)- - Ua Glucose Negative Ua Protein Negative Ua Nitrite Negative Ua Leuko Negative Ua Blood Trace-lysed Ua Color Not Entered Ua Ketones Negative Ua Clarity Not Entered Ua Specific [place] 1.010 1.003-1.030 Ua PH 6.5 5.0-7.5 Ua Bilirubin Negative Ua Urobilinogen 0.2 E.U./dL 0.0-1.0 1 NORMAL FUNCTION OR MILD ROBLES L DISEASE:>60 ml/min ADVANCED RENAL DISEASE:15-59 ml/min RENAL FAILURE:<15 ml/min Procedures Description No Information Available Medical Devices Description No Information Available Encounters Type Date Location Provider Dx Diagnosis Office Visit 04/12/2020 10:45a [place]/ [facility] Nikki glass NP Z87.442 Personal history of urinary calculi R31.29 Other microscopic hematuria Assessments Date Code Description Provider 04/12/2020 Z87.442 Personal history of urinary calc melissa Nikki Rubin NP 04/12/2020 R31.29 Other microscopic hematuria Raghu Rubin NP 04/12/2020 R31.29 Other microscopic hematuria Licha Castro MD Plan of Treatment Future Appointment(s):* 04/12/2021 3:00 pm - MARYANNE Brito at [facility] 04/12/2020 - Nikki Rubin NP* Z87.442 Personal history of urinary calculi* Comments:* She is asymptomatic. Renal ultrasound in 2019 revealed no evidence of renal calculi or hydronephrosis. I reviewed the signs and symptoms of passing a kidney stone. She will increase her fluid intake to 2-1/2 L of fluid a day, add lemon to water and maintaining a low oxalate and low sodium diet.Imaging on as-needed basis. She will call if she symptomatic. * R31.29 Other microscopic hematuria* Comments:* CT urogram and cystoscopy in 2018 revealing no genitourinary pathology. She has not had any episodes of blood in her urine. She is to call if she sees any blood in her urine. * All * Follow up:* 1 year Functional Status Description No Information Available Mental Status Description No Information Available Referrals Description No Information Available
--- OUTSIDE RECORDS SUMMARY | 2020-08-23 09:43 | CCD | Continuity of Care Document ---
Author Author All[facility] Dept, [facility] Organization Unknown Address [address] [address] Phone Unavailable Care Team Providers Care Customer Leader Name Role Phone Peter Myers M.D. AUTM [phone] Problems Description No Information Available Social History [...] Available Procedures Date Code Description Status 06/21/2020 83723 Allergy Injection 2 Or More Comp leted 05/28/2020 26505 Allergy Antigens Single Or Multi ple Completed 05/24/2020 21462 Allergy Injection 2 Or More Comp leted 05/10/2020 24090 Allergy Injection 2 Or More Comp leted 04/26/2020 34834 Allergy Injection 2 Or More Comp leted 04/12/2020 30208 Allergy Injection 2 Or More Comp leted 03/29/2020 64228 Allergy Injection 2 Or More Comp leted 03/16/2020 16871 Allergy Antigens Single Or Multi ple Completed 03/15/2020 37050 Allergy Injection 2 Or More Comp leted 03/01/2020 15206 Allergy Injection 2 Or More Comp leted 02/16/2020 88876 Allergy Injection 2 Or More Comp leted 02/02/2020 06530 Allergy Injection 2 Or More Comp leted 01/03/2020 86692 Allergy Injection 2 Or More Comp leted [...] 07/03/2020 3:15 pm - Allergy Dept at [facility] 210 * 08/06/2020 8:25 am - Allergy Dept at [facility] 210 04/18/2019 - Zaira Luciano [...]
--- OUTSIDE RECORDS SUMMARY | 2020-08-23 09:43 | CCD | Summary of Care ---
Author Author [facility] Organization [facility] Address Unknown Phone Unavailable Care Team Providers Care Custom Stock Maker Name Role Phone Peter Myers MD PCP Reason for Visit * Reason Comments Follow-up Patient states that she vera s not have any cardiac concerns at this time. Patient denies chest pains, palpitation s, SOB, and edema. Patient denies any recent surgeries and hospitalizatio ns. Encounter Details Care Team Description Date Type Department Dwight Bailey MD [address] [place] [id number] Palpitations (Primary Dx); SVT (supraventricular tachycardia); Long Q-T syndrome; History of radiofrequency ablation (RFA) procedure for cardiac arrhythmia 06/04/2020 [facility] [address] [place] [id number] Allergies Comments Active Allergy Reactions Severity Noted Date Other reaction(s): RASH Amoxicillin-Pot Rash Medium 04/09/2012 Clavulanate documented as of this encounter (statuses as of 06/04/2020) Medications End Date Status Medication Sig Dispensed Refills Start Date Active atorvastatin (LIPITOR) 20 Take 20 mg by 0 MG tablet mouth daily Active omeprazole (PRILOSEC) 20 Take 40 mg by 0 MG capsule mouth daily Active aspirin 81 MG tablet Take 81 mg by 0 mouth daily. Active levothyroxine (SYNTHROID, Take 50 mcg 0 LEVOTHROID) 50 MCG tablet by mouth Daily Active Albuterol Sulfate HFA 108 Inhale 2 0 (90 Base) MCG/ACT puffs into Inhalation Aerosol the lungs as Solution (PROVENTIL HFA) needed Active Breo Ellipta 100-25 Inhale 1 0 MCG/INH Inhalation Inhaler into 0 Aerosol Powder Breath the lungs Activated (Fluticasone daily Furoate-Vilanterol) Active Misc. Devices (DURABLE Use as 4 each 0 MEDICAL EQUIPMENT SEE directed. 0 SIG) XX MISCIndications: Mastectomy Malignant neoplasm of bra - hx of right breast in female, right estrogen receptor mastectomy negative, unspecified Dx: Breast site of breast Cancer Active Misc. Devices (DURABLE Use as 2 each 0 MEDICAL EQUIPMENT SEE directed. 0 SIG) XX MISCIndications: Right breast Malignant neoplasm of prosthesis, right breast in female, hx breast ca estrogen receptor negative, unspecified site of breast Active Montelukast Sodium 10 MG Take 10 mg by 0 03/27 Oral Tablet (SINGULAIR) mouth daily 0 Active Metoprolol Succinate ER Take 1 tablet 90 tablet 3 25 MG Oral Tablet by mouth 0 Extended Release 24 Hour daily (TOPROL-XL) 06/04/2020 Discontinued (Reorder) Metoprolol Succinate ER Take 1 tablet 90 tablet 1 25 MG Oral Tablet by mouth 0 Extended Release 24 Hour daily (TOPROL-XL) documented as of this encounter (statuses as of 06/04/2020) Active Problems Problem Noted Date History of radiofrequency ablation (RFA) procedure fo r cardiac arrhythmia 06/04/2020 Palpitations 06/06/2019 SVT (supraventricular tachycardia) 06/06/2019 Family history of breast cancer 01/10/2016 Dense breasts 01/10/2016 Family history of ovarian cancer 01/10/2016 Family history of melanoma 01/10/2016 Personal history of malignant neoplasm of breast Other screening mammogram 12/29/2012 Ulcer Overview: stomach Hearing loss Long Q-T syndrome Breast cancer Overview: 1996 right, T1N2M0, ER/CO/HER2 neg, 18 positive nodes, mastectomy and CMF Completed tamoxifen chemoprevention documented as of this encounter (statuses as of 06/04/2020) Social History Date Tobacco Use Types Packs/Day Years Used Never Smoker 0 Smokeless Tobacco: Never Used Drinks/Week oz/Week Comments Alcohol Use once a week Yes Sex Assigned at Date Recorded Not on file documented as of this encounter Last Filed Vital Signs Reading Time Taken Comments Vital Sign - - Blood Pressure - - Pulse - - Temperature - - Respiratory Rate - - Oxygen Saturation - - Inhaled Oxygen Concentration 72.6 kg (160 lb) 06/04/2020 3:12 PM EST Weight 157.5 cm (5' 2") 06/04/2020 3:12 PM EST Height 29.26 06/04/2020 3:12 PM EST Body Mass Index documented in this encounter Progress Notes * Dwight Bailey MD - 06/04/2020 3:20 PM EST CARDIOLOGY TELEPHONE OFFICE NOTE June 04, 2020 PATIENT CONSENTED TO TELEMEDICINE ENCOUNTER No Audio Attempted by Defaulted to Telephone PERSONS ON TELEPHONE CALL: Patient & Physician REASON FOR CALL/CC: Telephone Communication for Postponed Office Evaluation This is occurring in the current state of a declared National Emergency. Current COVID 19 Crisis This encounter took place in the context of the novel coronavirus (COVID-19) pandemic. The risks and benefits of telehealth services were discussed with the patient, and the patient consented to the receipt of such telehealth services. HISTORY: Ms. Valles is a 59 y.o. female with palpitatons, SVT, AVNRT with Ablati on, Hyperlipidemia and QTc abnormality. Gilda is a white female with a history of longstanding intermittent palpitatio ns, history of SVT status post previous AV noni reentrant tachycardia ablation procedure in 2016 with a history of prolonged QTc, hyperlipidemia, hypothyroidis m and rare intermittent palpitations without concern for sustained arrhythmia. She denies any evidence for chest pain or chest pressure complaints. She denies any undue dyspnea. She has had no falls, near syncope or syncope. There is no evidence for PND, orthopnea, or pedal edema. 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 She has done very well status post previous AV noni reentrant tachycardia ablat ion in 2016. There is no evidence for any recurrence of her significant elevate d heart rates / sustained tachycardia. She had been on beta adelaida therapy in the past. This was initially utilized f or the treatment of the SVT. Once she was ablated had stopped that and she want ed to simplify her medication treatment, but does feel better on the low dose me toprolol which she continues with. She does have a history of long QTc but no evidence for recent concern for arrhy thmia, falls, near syncope or syncope. She does have a history of congential de afness. She is on a low-fat, low-cholesterol dietary recommendation. She has recently ga ined weight. She has been on statin therapy with good tolerability and result. She does have additional medical history for gastroesophageal reflux disease as well as hypothyroidism. She does have routine laboratory drawn under the care o f Dr. Peter Myers and that is planned upcoming. She has been more recently diagnosed with asthma on Breo. Mood is good Discussed COVID crisis and precautions for Thanksgiving. PAST MEDICAL / CARDIAC HISTORY: Palpitations Life Long (Tx with Digoxin during ) Patient to Wean Beta Adelaida to OFF Summer 2017 Addition of METOPROLOL ER 50mg NOVEMBER 2018 for HR 90s and Elevated BP 14 0s Patient with Better Result on TOPROL 25 mg per day May 2019 Abnormal EKG QTc Prolongation Treadmill Stress Echo 2008 Reported Negative for Ischemia Supraventricular Tachycardia Hx of Ablation Jun 2016 with Good Result Worsened SVT Tx with Adenosine May 2016 Dr. Kirk Arredondo Good Result AV Noni Rentrant Rhythm Ablation of Slow Pathway Successful A blation Prolonged QTC Suspected [place] Baker Syndrome Congenital Deafness Treadmill Stress Echo Jul 2017 NL LVEF Good Exercise Capacity No EKG or Echo Manifestations of Ischemia No Arrhythmia Asthma Breo Obesity Hypothyroidism Hyperlipidemia Congenital Deafness Breast Cancer Mastectomy Adriamycin and Cytoxan Tx FH of Premature CAD Grandfather and Uncles with [place] and in 50s MEDICATIONS: Current Outpatient Medications: Albuterol Sulfate HFA 108 (90 Base) MCG/ACT Inhalation Aerosol Solution (PROVENTIL HFA), Inhale 2 puffs into the lungs as needed, Disp: , Rfl: aspirin 81 MG tablet, Take 81 mg by mouth daily. , Disp: , Rfl: atorvastatin (LIPITOR) 20 MG tablet, Take 20 mg by mouth daily , Disp: , Rfl: Breo Ellipta 100-25 MCG/INH Inhalation Aerosol Powder Breath Activated ( Fluticasone Furoate-Vilanterol), Inhale 1 Inhaler into the lungs daily, Disp: , Rfl: levothyroxine (SYNTHROID, LEVOTHROID) 50 MCG tablet, Take 50 mcg by mout h Daily, Disp: , Rfl: Metoprolol Succinate ER 25 MG Oral Tablet Extended Release 24 Hour (TOPR OL-XL), Take 1 tablet by mouth daily, Disp: 90 tablet, Rfl: 3 Misc. Devices (DURABLE MEDICAL EQUIPMENT SEE SIG) XX MISC, Use as direct ed. Mastectomy bra - hx of right mastectomy Dx: Breast Cancer, Disp: 4 each, Rf l: 0 Misc. Devices (DURABLE MEDICAL EQUIPMENT SEE SIG) XX MISC, Use as direct ed. 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 Employer: [employer] Social Needs Financial resource strain: Not on file Food insecurity Worry: Not on file Inability: Not on file Transportation needs Medical: Not on file Non-medical: Not on file Tobacco Use Smoking status: Never Smoker Smokeless tobacco: Never Used Substance and Sexual Activity Alcohol use: Yes Comment: once a week Drug use: No Sexual activity: Not on file Lifestyle Physical activity Days per week: Not on file Minutes per session: Not on file Stress: Not on file Relationships Social connections Talks on phone: Not on file Gets together: Not on file Attends hoahaoism service: Not on file Active member of club or organization: Not on file Attends meetings of clubs or organizations: Not on file Relationship status: Not on file Intimate partner violence Fear of current or ex partner: Not on file Emotionally abused: Not on file Physically abused: Not on file Forced sexual activity: Not on file Other Topics Concern Not on file Social History Narrative Not on file TOBACCO USE: Social History Tobacco Use Smoking Status Never Smoker Smokeless Tobacco Never Used ROS: Review of Systems All Systems are as noted above or considered to be benign. ASSESSMENT/PLAN: Problem List Circulatory Long Q-T syndrome Relevant Medications Metoprolol Succinate ER 25 MG Oral Tablet Extended Release 24 Hour (TOPROL-XL) Palpitations SVT (supraventricular tachycardia) Relevant Medications Metoprolol Succinate ER 25 MG Oral Tablet Extended Release 24 Hour (TOPROL-XL) Other History of radiofrequency ablation (RFA) procedure for cardiac arrhythmia No follow-ups on file. TOTAL TIME SPENT ON MEDICAL DISCUSSION: 11 MIN Dwight Bailey MD [facility] This is a telemedical visit. The patient was informed of the risks including sec urity breech, technological failure, inability to perform a comprehensive physic al exam which could delay or prevent an accurate diagnosis, and potential compli cations from treatment decisions rendered over a telemedical platform. The patie nt understands and consented to the use of tele-health services. documented in this encounter Plan of Treatment Care Team Description Date Type Specialty 03/20/2021 Appointment Radiology 03/20/2021 Appointment Radiology Katrina Monroe NP [address] [place] [address] [phone] 03/20/2021 Office Visit Breast Surgery Health Maintenance Due Date Last Done Comments Hepatitis C Screening (B. 1960 [id number]) MMR Vaccines (1 of 1 - 1961 Standard series) Varicella Vaccines (1 of 1961 2 - 2-dose childhood series) Pneumococcal Vaccine: 1966 Pediatrics (0 to 5 Years) and At-Risk Patients (6 to 64 Years) (1 of 3 - PCV13) DTaP,Tdap,and Td Vaccines 1967 (1 - Tdap) HIV Screening 1973 Cervical Cancer Screening 1981 5 years Colon Cancer Screening 10 2010 yrs Influenza Vaccine 04/12/2020 Breast Cancer Screening 2 03/14/2022 03/14/2020, years 03/14/2020, 03/03/2019, Additional history exists Pneumococcal Vaccine: 65+ 2025 Years (1 of 1 - PPSV23) HIB Vaccines Aged Out No longer eligible based on patient's age to complete this topic Hepatitis A Vaccines Aged Out No longer eligibl e based on patient's age to complete this topic Hepatitis B Vaccines Aged Out No longer eligibl e based on patient's age to complete this topic IPV Vaccines Aged Out No longer eligible based on patient's age to complete this topic documented as of this encounter Results Not on filedocumented in this encounter Visit Diagnoses Diagnosis Palpitations - Primary SVT (supraventricular tachycardia) Other specified cardiac dysrhythmias Long Q-T syndrome Long QT syndrome History of radiofrequency ablation (RFA ) procedure for cardiac arrhythmia documented in this encounter
--- OUTSIDE RECORDS SUMMARY | 2020-08-23 09:44 | CCD | Continuity of Care Document ---
Author Author Allergy Dept, [facility] Organization Unknown Address [address] [address] Phone Unavailable Care Team Providers Care Machine Puller Over Name Role Phone Peter Myers M.D. AUTM [phone] Problems Description No Information Available Social History [...] Available Vital Signs Date Vital Result Comment 05/10/2020 3:04pm Body Temperature 98.1 F 04/26/2020 3:03pm Body Temperature 96.7 F Results Description No Information Available Procedures Date Code Description Status 05/10/2020 94461 Allergy Injection 2 Or More Comp leted 04/26/2020 58741 Allergy Injection 2 Or More Comp leted 04/12/2020 84181 Allergy Injection 2 Or More Comp leted 03/29/2020 52782 Allergy Injection 2 Or More Comp leted 03/16/2020 33501 Allergy Antigens Single Or Multi ple Completed 03/15/2020 64043 Allergy Injection 2 Or More Comp leted 03/01/2020 44847 Allergy Injection 2 Or More Comp leted 02/16/2020 05013 Allergy Injection 2 Or More Comp leted 02/02/2020 64451 Allergy Injection 2 Or More Comp leted 01/03/2020 57777 Allergy Injection 2 Or More Comp leted 12/20/2019 73748 Allergy Injection 2 Or More Comp leted 12/15/2019 54095 Allergy Antigens Single Or Multi ple Completed 12/06/2019 12465 Allergy Injection 2 Or More Comp leted Medical Devices Description No Information Available Encounters Description No Information Available Assessments Date Code Description Provider 05/10/2020 J30.1 Allergic rhinitis due to pollen [...] J30.2 Other seasonal allergic rhinitis Allergy Dept 12/20/2019 J30.1 Allergic rhinitis due to pollen Allergy Dept 12/20/2019 J30.2 Other seasonal allergic rhinitis Allergy Dept 12/20/2019 J30.81 Allergic rhinitis due to animal (cat) (dog) hair and dander Allergy Dept 12/15/2019 J30.1 Allergic rhinitis due to pollen Allergy Dept 12/15/2019 J30.2 Other seasonal allergic rhinitis Allergy Dept 12/15/2019 J30.81 Allergic rhinitis due to animal (cat) (dog) hair and dander Allergy Dept 12/06/2019 J30.1 Allergic rhinitis due to pollen Allergy Dept 12/06/2019 J30.2 Other seasonal allergic rhinitis Allergy Dept Plan of Treatment Future Appointment(s):* 06/06/2020 2:45 pm - Allergy Dept at [place] [address] 04/18/2019 - Zaira Luciano NP* J20.9 Acute [...]
--- OUTSIDE RECORDS SUMMARY | 2020-08-23 09:44 | CCD ---
Author Author [facility] Address Unknown Phone Unavailable Care Team Providers Care Asset Coordinator Name Role Phone TheodoraoneJv SENIOR UNIX ADMINISTRATOR Unavailable Unavailable Tolone, M Sabra SENIOR UNIX ADMINISTRATOR Unavailable Unavailable Tolone, M Sabra SENIOR UNIX ADMINISTRATOR Unavailable Unavailable Tolone, M Sabra SENIOR UNIX ADMINISTRATOR Unavailable Unavailable Tolone, M Sabra SENIOR UNIX ADMINISTRATOR Unavailable Unavailable Tolone, M Sabra SENIOR UNIX ADMINISTRATOR Unavailable Unavailable Tolone, M Sabra SENIOR UNIX ADMINISTRATOR Unavailable Unavailable Tolone, M Sabra SENIOR UNIX ADMINISTRATOR Unavailable Unavailable Tolone, M Sabra SENIOR UNIX ADMINISTRATOR Unavailable Unavailable Tolone, M Sabra SENIOR UNIX ADMINISTRATOR Unavailable Unavailable Tolone, M Sabra SENIOR UNIX ADMINISTRATOR Unavailable Unavailable Tolone, M Sabra SENIOR UNIX ADMINISTRATOR Unavailable Unavailable Tolone, M Sabra SENIOR UNIX ADMINISTRATOR Unavailable Unavailable Tolone, M Sabra SENIOR UNIX ADMINISTRATOR Unavailable Unavailable Tolone, M Sabra SENIOR UNIX ADMINISTRATOR Unavailable Unavailable Tolone, M Sabra SENIOR UNIX ADMINISTRATOR Unavailable Unavailable Tolone, M Sabra SENIOR UNIX ADMINISTRATOR Unavailable Unavailable Tolone, M Sabra SENIOR UNIX ADMINISTRATOR Unavailable Unavailable Tolone, M Sabra SENIOR UNIX ADMINISTRATOR Unavailable Unavailable Tolone, M Sabra SENIOR UNIX ADMINISTRATOR Unavailable Unavailable Tolone, M Sabra SENIOR UNIX ADMINISTRATOR Unavailable Unavailable Tolone, M Sabra SENIOR UNIX ADMINISTRATOR Unavailable Unavailable Tolone, M Sabra SENIOR UNIX ADMINISTRATOR Unavailable Unavailable Tolone, M Sabra SENIOR UNIX ADMINISTRATOR Unavailable Unavailable Tolone, M Sabra SENIOR UNIX ADMINISTRATOR Unavailable Unavailable Tolone, M Sabra SENIOR UNIX ADMINISTRATOR Unavailable Unavailable Tolone, M Sabra SENIOR UNIX ADMINISTRATOR Unavailable Unavailable Tolone, M Sabra SENIOR UNIX ADMINISTRATOR Unavailable Unavailable Tolone, M Sabra SENIOR UNIX ADMINISTRATOR Unavailable Unavailable Tolone, M Sabra SENIOR UNIX ADMINISTRATOR Unavailable Unavailable Tolone, M Sabra SENIOR UNIX ADMINISTRATOR Unavailable Unavailable Tolone, M Sabra SENIOR UNIX ADMINISTRATOR Unavailable Unavailable Tolone, M Sabra SENIOR UNIX ADMINISTRATOR Unavailable Unavailable Tolone, M Sabra SENIOR UNIX ADMINISTRATOR Unavailable Unavailable Tolone, M Sabra SENIOR UNIX ADMINISTRATOR Unavailable Unavailable Facundo CANO Unavailable Unavailable Jv Gardner MD Unavailable Unavailable Jv Gardner MD Unavailable Unavailable Jv Gardner MD Unavailable Unavailable Jv Gardner MD Unavailable Unavailable Jv Gardner MD Unavailable Unavailable Jv Gardner MD Unavailable Unavailable Jv Gardner MD Unavailable Unavailable Jv Gardner MD Unavailable Unavailable Jv Gardner MD Unavailable Unavailable Jv Gardner MD Unavailable Unavailable Jv Gardner MD Unavailable Unavailable Jv Gardner MD Unavailable Unavailable Jv Gardner MD Unavailable Unavailable Jv Gardner MD Unavailable Unavailable Jv Gardner MD Unavailable Unavailable Jv Gardner MD Unavailable Unavailable Jv Gardner MD Unavailable Unavailable Jv Gardner MD Unavailable Unavailable Jv Gardner MD Unavailable Unavailable Jv Gardner MD Unavailable Unavailable Jv Gardner MD Unavailable Unavailable Jv Gardner MD Unavailable Unavailable Jv Gardner MD Unavailable Unavailable Jv Gardner MD Unavailable Unavailable Jv Gardner MD Unavailable Unavailable Jv Gardner MD Unavailable Unavailable Jv Gardner MD Unavailable Unavailable Jv Gardner MD Unavailable Unavailable Jv Gardner MD Unavailable Unavailable Jv Gardner MD Unavailable Unavailable Jv Gardner MD Unavailable Unavailable Jv Gardner MD Unavailable Unavailable Jv Gardner MD Unavailable Unavailable Jv Gardner MD Unavailable Unavailable Jv Gardner MD Unavailable Unavailable Jv Gardner MD Unavailable Unavailable Jv Gardner MD Unavailable Unavailable Jv Gardner MD Unavailable Unavailable Jv Gardner MD Unavailable Unavailable Jv Gardner MD Unavailable Unavailable Jv Gardner MD Unavailable Unavailable Jv Gradner MD Unavailable Unavailable Jv Gardner MD Unavailable Unavailable Jv Gardner MD Unavailable Unavailable Jv Gardner MD Unavailable Unavailable Jv Gardner MD Unavailable Unavailable Jv Gardner MD Unavailable Unavailable Jv Gardner MD Unavailable Unavailable Jv Gardner MD Unavailable Unavailable Jv Gardner MD Unavailable Unavailable Jv Gardner MD Unavailable Unavailable Jv Gardner MD Unavailable Unavailable Caryn, Gaetane SENIOR UNIX ADMINISTRATOR Unavailable Unavailable [place], Gaetane SENIOR UNIX ADMINISTRATOR Unavailable Unavailable Caryn, Gaetane SENIOR UNIX ADMINISTRATOR Unavailable Unavailable Caryn, Gaetane SENIOR UNIX ADMINISTRATOR Unavailable Unavailable Caryn, Gaetane SENIOR UNIX ADMINISTRATOR Unavailable Unavailable [place], Gaetane SENIOR UNIX ADMINISTRATOR Unavailable Unavailable Caryn, Gaetane SENIOR UNIX ADMINISTRATOR Unavailable Unavailable [place], Gaetane SENIOR UNIX ADMINISTRATOR Unavailable Unavailable Caryn, Gaetane SENIOR UNIX ADMINISTRATOR Unavailable Unavailable Caryn, Gaetane SENIOR UNIX ADMINISTRATOR Unavailable Unavailable [place], Gaetane SENIOR UNIX ADMINISTRATOR Unavailable Unavailable [place], Gaetane SENIOR UNIX ADMINISTRATOR Unavailable Unavailable [place], Gaetane SENIOR UNIX ADMINISTRATOR Unavailable Unavailable [place], Gaetane SENIOR UNIX ADMINISTRATOR Unavailable Unavailable [place], Gaetane SENIOR UNIX ADMINISTRATOR Unavailable Unavailable [place], Gaetane SENIOR UNIX ADMINISTRATOR Unavailable Unavailable Caryn, Gaetane SENIOR UNIX ADMINISTRATOR Unavailable Unavailable [place], Gaetane SENIOR UNIX ADMINISTRATOR Unavailable Unavailable Caryn, Gaetane SENIOR UNIX ADMINISTRATOR Unavailable Unavailable [place], Gaetane SENIOR UNIX ADMINISTRATOR Unavailable Unavailable [place], Gaetane SENIOR UNIX ADMINISTRATOR Unavailable Unavailable [place], Gaetane SENIOR UNIX ADMINISTRATOR Unavailable Unavailable Torsten MORENO MD Unavailable Unavailable Torsten MORENO MD Unavailable Unavailable NELSON LAGOON, P RYAN MD Unavailable Unavailable NELSON LAGOON, P RYAN MD Unavailable Unavailable NELSON LAGOON, P RYAN MD Unavailable Unavailable NELSON LAGOON, P RYAN MD Unavailable Unavailable NELSON LAGOON, P RYAN MD Unavailable Unavailable NELSON LAGOON, P RYAN MD Unavailable Unavailable NELSON LAGOON, P RYAN MD Unavailable Unavailable NELSON LAGOON, P RYAN MD Unavailable Unavailable NELSON LAGOON, P RYAN MD Unavailable Unavailable NELSON LAGOON, P RYAN MD Unavailable Unavailable NELSON LAGOON, P RYAN MD Unavailable Unavailable NELSON LAGOON, P RYAN MD Unavailable Unavailable NELSON LAGOON, P RYAN MD Unavailable Unavailable NELSON LAGOON, P RYAN MD Unavailable Unavailable NELSON LAGOON, P RYAN MD Unavailable Unavailable NELSON LAGOON, P RYAN MD Unavailable Unavailable NELSON LAGOON, P RYAN MD Unavailable Unavailable NELSON LAGOON, P RYAN MD Unavailable Unavailable NELSON LAGOON, P RYAN MD Unavailable Unavailable NELSON LAGOON, P RYAN MD Unavailable Unavailable NELSON LAGOON, P RYAN MD Unavailable Unavailable NELSON LAGOON, P RYAN MD Unavailable Unavailable NELSON LAGOON, P RYAN MD Unavailable Unavailable NELSON LAGOON, P RYAN MD Unavailable Unavailable NELSON LAGOON, P RYAN MD Unavailable Unavailable NELSON LAGOON, P RYAN MD Unavailable Unavailable NELSON LAGOON, P RYAN MD Unavailable Unavailable NELSON LAGOON, P RYAN MD Unavailable Unavailable NELSON LAGOON, P RYAN MD Unavailable Unavailable NELSON LAGOON, P RYAN MD Unavailable Unavailable NELSON LAGOON, P RYAN MD Unavailable Unavailable NELSON LAGOON, P RYAN MD Unavailable Unavailable NELSON LAGOON, P RYAN MD Unavailable Unavailable NELSON LAGOON, P RYAN MD Unavailable Unavailable NELSON LAGOON, P RYAN MD Unavailable Unavailable NELSON LAGOON, P RYAN MD Unavailable Unavailable NELSON LAGOON, P RYAN MD Unavailable Unavailable NELSON LAGOON, P RYAN MD Unavailable Unavailable NELSON LAGOON, P RYAN MD Unavailable Unavailable NELSON LAGOON, P RYAN MD Unavailable Unavailable NELSON LAGOON, P RYAN MD Unavailable Unavailable NELSON LAGOON, P RYAN MD Unavailable Unavailable NELSON LAGOON, P RYAN MD Unavailable Unavailable NELSON LAGOON, P RYAN MD Unavailable Unavailable NELSON LAGOON, P RYAN MD Unavailable Unavailable NELSON LAGOON, P RYAN MD Unavailable Unavailable NELSON LAGOON, P RYAN MD Unavailable Unavailable NELSON LAGOON, P RYAN MD Unavailable Unavailable NELSON LAGOON, P RYAN MD Unavailable Unavailable NELSON LAGOON, P RYAN MD Unavailable Unavailable NELSON LAGOON, P RYAN MD Unavailable Unavailable NELSON LAGOON, P RYAN MD Unavailable Unavailable NELSON LAGOON, P RYAN MD Unavailable Unavailable NELSON LAGOON, P RYAN MD Unavailable Unavailable NELSON LAGOON, P RYAN MD Unavailable Unavailable NELSON LAGOON, P RYAN MD Unavailable Unavailable NELSON LAGOON, P RYAN MD Unavailable Unavailable NELSON LAGOON, P RYAN MD Unavailable Unavailable NELSON LAGOON, P RYAN MD Unavailable Unavailable NELSON LAGOON, P RYAN MD Unavailable Unavailable NELSON LAGOON, P RYAN MD Unavailable Unavailable NELSON LAGOON, P RYAN MD Unavailable Unavailable NELSON LAGOON, P RYAN MD Unavailable Unavailable NELSON LAGOON, P RYAN MD Unavailable Unavailable NELSON LAGOON, P RYAN MD Unavailable Unavailable NELSON LAGOON, P RYAN MD Unavailable Unavailable NELSON LAGOON, P RYAN MD Unavailable Unavailable NELSON LAGOON, P RYAN MD Unavailable Unavailable NELSON LAGOON, P YRAN MD Unavailable Unavailable NELSON LAGOON, P RYAN MD Unavailable Unavailable NELSON LAGOON, P RYAN MD Unavailable Unavailable NELSON LAGOON, P RYAN MD Unavailable Unavailable NELSON LAGOON, P RYAN MD Unavailable Unavailable NELSON LAGOON, P RYAN MD Unavailable Unavailable NELSON LAGOON, P RYAN MD Unavailable Unavailable NELSON LAGOON, P RYAN MD Unavailable Unavailable NELSON LAGOON, P RYAN MD Unavailable Unavailable NELSON LAGOON, P RYAN MD Unavailable Unavailable NELSON LAGOON, P RYAN MD Unavailable Unavailable NELSON LAGOON, P RYAN MD Unavailable Unavailable NELSON LAGOON, P RYAN MD Unavailable Unavailable NELSON LAGOON, P RYAN MD Unavailable Unavailable NELSON LAGOON, P RYAN MD Unavailable Unavailable NELSON LAGOON, P RYAN MD Unavailable Unavailable NELSON LAGOON, P RYAN MD Unavailable Unavailable NELSON LAGOON, P RYAN MD Unavailable Unavailable NELSON LAGOON, P RYAN MD Unavailable Unavailable NELSON LAGOON, P RYAN MD Unavailable Unavailable NELSON LAGOON, P RYAN MD Unavailable Unavailable NELSON LAGOON, P RYAN MD Unavailable Unavailable Kirk ANGUIANOEW DO Unavailable [phone] Kirk ANGUIANOEW DO Unavailable [phone] Kirk ANGUIANOEW DO Unavailable [phone] Kirk ANGUIANOEW DO Unavailable [phone] Kirk ANGUIANOEW DO Unavailable [phone] Kirk ANGUIANOEW DO Unavailable [phone] Kirk ANGUIANOEW DO Unavailable [phone] Kirk ANGUIANO ELISA DO Unavailable [phone] Kirk ANGUIANO ELISA DO Unavailable [phone] Kirk ANGUIANO ELISA DO Unavailable [phone] Kirk ANGUIANOEW DO Unavailable [phone] Kirk ANGUIANOEW DO Unavailable [phone] Kirk ANGUIANO ELISA DO Unavailable [phone] Kirk ANGUIANO ELISA DO Unavailable [phone] Kirk ANGUIANO ELISA DO Unavailable [phone] Kirk ANGUIANO DO Unavailable [phone] Kirk ANGUIANO DO Unavailable [phone] Kirk ANGUIANO DO Unavailable [phone] Kirk ANGUIANO DO Unavailable [phone] Kirk ANGUIANO DO Unavailable [phone] Kirk ANGUIANO DO Unavailable [phone] Jael Bailey MD Unavailable Unavailable Jael Bailey MD Unavailable Unavailable Jael Bailey MD Unavailable Unavailable Jael Bailey MD Unavailable Unavailable Jael Bailey MD Unavailable Unavailable Jael Bailey MD Unavailable Unavailable Jael Bailey MD Unavailable Unavailable Jael Bailey MD Unavailable Unavailable Jael Bailey MD Unavailable Unavailable Jael Bailey MD Unavailable Unavailable Jael Bailey MD Unavailable Unavailable Jael Bailey MD Unavailable Unavailable Jael Bailey MD Unavailable Unavailable Jael Bailey MD Unavailable Unavailable Jael Bailey MD Unavailable Unavailable Jael Bailey MD Unavailable Unavailable Jael Bailey MD Unavailable Unavailable Jael Bailey MD Unavailable Unavailable Jael Bailey MD Unavailable Unavailable Jael Bailey MD Unavailable Unavailable Jael Bailey MD Unavailable Unavailable Jael Bailey MD Unavailable Unavailable Jael Bailey MD Unavailable Unavailable Jael Bailey MD Unavailable Unavailable Jael Bailey MD Unavailable Unavailable Jael Bailey MD Unavailable Unavailable Jael Bailey MD Unavailable Unavailable Jael Bailey MD Unavailable Unavailable Jael Bailey MD Unavailable Unavailable Jael Bailey MD Unavailable Unavailable Jael Bailey MD Unavailable Unavailable Jael Bailey MD Unavailable Unavailable Jael Bailey MD Unavailable Unavailable Jael Bailey MD Unavailable Unavailable Jael Bailey MD Unavailable Unavailable Jael Bailey MD Unavailable Unavailable Jael Bailey MD Unavailable Unavailable Jael Bailey MD Unavailable Unavailable Charlamb, S Dwight MD Unavailable Unavailable Charlamb, S Dwight MD Unavailable Unavailable Charlamb, S Dwight MD Unavailable Unavailable Charlamb, S Dwight MD Unavailable Unavailable Charlamb, S Dwight MD Unavailable Unavailable Charlamb, S Dwight MD Unavailable Unavailable Charlamb, S Dwight MD Unavailable Unavailable Charlamb, S Dwight MD Unavailable Unavailable Charlamb, S Dwight MD Unavailable Unavailable Charlamb, S Dwight MD Unavailable Unavailable Charlamb, S Dwight MD Unavailable Unavailable Charlamb, S Dwight MD Unavailable Unavailable Charlamb, S Dwight MD Unavailable Unavailable Charlamb, S Dwight MD Unavailable Unavailable Charlamb, S Dwight MD Unavailable Unavailable Charlamb, S Dwight MD Unavailable Unavailable Charlamb, S Dwight MD Unavailable Unavailable Charlamb, S Dwight MD Unavailable Unavailable Charlamb, S Dwight MD Unavailable Unavailable Charlamb, S Dwight MD Unavailable Unavailable Charlamb, S Dwight MD Unavailable Unavailable Charlamb, S Dwgiht MD Unavailable Unavailable Charlamb, S Dwight MD Unavailable Unavailable Charlamb, S Dwight MD Unavailable Unavailable Charlamb, S Dwight MD Unavailable Unavailable Charlamb, S Dwight MD Unavailable Unavailable Charlamb, S Dwight MD Unavailable Unavailable Charlamb, S Dwight MD Unavailable Unavailable Charlamb, S Dwight MD Unavailable Unavailable Re-disclosure Warning The records that you are about to access may contain information from federally-assisted alcohol or drug abuse programs. If such information is present, then the following federally mandated warning applies: This information has been disclosed to you from records protected by federal confidentiality rules (42 CFR part 2). The federal rules prohibit you from making any further disclosure of this information unless further disclosure is expressly permitted by the written consent of the person to whom it pertains or as otherwise permitted by 42 CFR part 2. A general authorization for the release of medical or other information is NOT sufficient for this purpose. The Federal rules restrict any use of the information to criminally investigate or prosecute any alcohol or drug abuse patient.The records that you are about to access may contain highly sensitive health information, the redisclosure of which is protected by Article 27-F of the [facility] Public Health law. If you continue you may have access to information: Regarding HIV / AIDS; Provided by facilities licensed or operated by the [facility] Office of Mental Health; or Provided by the [facility] Office for People With Developmental Disabilities. If such information is present, then the following [facility] mandated warning applies: This information has been disclosed to you from confidential records which are protected by state law. State law prohibits you from making any further disclosure of this information without the specific written consent of the person to whom it pertains, or as otherwise permitted by law. Any unauthorized further disclosure in violation of state law may result in a fine or chcf sentence or both. A general authorization for the release of medical or other information is NOT sufficient authorization for further disc losure. Allergies and Adverse Reactions Type Description Substance Reaction Status Data Source(s ) Drug allergy Avalox Oral Tablet Avalox Active GREE NWNORA (Mitesh Blanco MD [facility]) Family History Family Member Name Family Member Gender Family Member Status Date o f Status Description Data Source(s) Unknown Male Problem [facility] ([facility]) Unknown Unknown Problem [facility] ([facility]) Unknown Male Problem [facility] ([facility] [place]) Unknown Unknown Problem [facility] ([facility]) Encounters Encounter Providers Location Date Indications Data Source(s ) Outpatient Attender: Dwight Bailey MD 06/10/2021 12:00:00 AM [facility] Outpatient Attender: L[facility] CANOReferrer: [facility] CANO 03/20/2021 12:00:00 AM [facility] Outpatient Referrer: LUH CANO 03/20/2021 12:00:00 AM [facility] Outpatient Referrer: [facility] CANO 03/20/2021 12:00:00 AM [facility] Outpatient Attender: RYAN MORENO MD Main Office 06/28/2020 02:15:00 PM EST [facility] ([facility]) Outpatient<td ID="encounterTypeDescripti onID0">6 Month Follow-Up</td><td>Elisa Anguiano DO</td><td>Mitesh Robles MD [facility]</td><td>06/18/2020</td><td>9:51AM</td><td>11:35AM</td><td><content ID="encounterDiagnosisID0-0">Essential Hypertension</content>, <content ID="encounterDiagnosisID0-1">Cataract Senile Anterior Subcapsular Polar</content>, <content ID="encounterDiagnosisID0-2">Cataract Senile Cortical</content>, <content ID="encounterDiagnosisID0-3">Dry Eye Syndrome</content>, <content ID="encounterDiagnosisID0-4">Chorioretinal Scar</content>, <content ID="encounterDiagnosisID0-5">Macular Degeneration Nonexudative Bilateral Early Dry Stage</content>, <content ID="encounterDiagnosisID0-6">Vitreous Disorders Degeneration</content></td> Attender: ELISA Rod MD [facility] 06/18/2020 09:51:00 AM EST - 06/18/2020 11:35:00 AM EST Vitreous Disorders DegenerationEssential HypertensionMacular Degeneration Nonexudative Bilateral Early Dry StageChorioretinal ScarDry Eye SyndromeCataract Senile CorticalCataract Senile Anterior Subcapsular Polar CASIE (Mitesh Blanco MD [facility]) Vitreous Disorders Degeneration Essential Hypertension Macular Degeneration Nonexudative Bilate ral Early Dry Stage Chorioretinal Scar Dry Eye Syndrome Cataract Senile Cortical Cataract Senile Anterior Subcapsular Darian ar Outpatient Attender: Dwight Bailey MDReferrer: RYAN PERALTA MD [id number] 06/04/2020 12:00:00 AM EST - 06/04/2020 04:19:50 PM EST Palpitations [facility] Palpitations Outpatient Attender: Nikki Rubin SENIOR UNIX ADMINISTRATOR [place] 04/12/2020 10:45:00 AM EDT [facility] Outpatient Attender: LUH CANOReferrer: L[facility] CANO [id number] 03/14/2020 12:00:00 AM EDT Encounter for screening mammogram for ma lignant neoplasm of breast [facility] Encounter for screening mammogram for ma lignant neoplasm of breast Outpatient Referrer: [facility] CANO 03/14/2020 12:00 :00 AM EDT Personal history of malignant neoplasm of breast [facility] Personal history of malignant neoplasm o f breast Outpatient Referrer: [facility] CANO 03/14/2020 12:00 :00 AM EDT Personal history of malignant neoplasm of breast [facility] Personal history of malignant neoplasm o f breast Outpatient Attender: LUH CANOReferrer: [facility] CANO 03/06/2020 12:00:00 AM [facility] Outpatient Referrer: L[facility] CANO 03/06/2020 12:00:00 AM [facility] Outpatient Referrer: [facility] CANO 03/06/2020 12:00:00 AM [facility] Outpatient Attender: Osmar Gardner MD Main Office 02/29/2020 08:00:00 AM EDT [facility] ([facility]) Recurring Patient Referrer: Osmar Gardner MD 02/02/2020 09:11:01 AM EDT [facility] 02/02/2020 08:44:59 AM EDT [facility] 01/23/2020 01:18:29 PM EDT [facility] 01/23/2020 01:17:47 PM EDT [facility] Attender: Osmar Gardner MD Main Office 01/20/2020 01:15:00 PM EDT [facility] ([facility]) Outpatient Attender: Sabra Holcomb NP Main Office 08/13/2019 09:15:0 0 AM EST [facility] ([facility]) Recurring Patient Referrer: RYAN MORENO MD 07/26/2019 05:01:29 PM EST [facility] Out[facility] Attender: RYAN MORENO MD Main Office 07/26/2019 02:00:00 PM EST [facility] ([facility]) Outpatient<td ID="encounterTypeDescripti onID1">6 Month Follow-Up with [facility]</td><td>Elisa Anguiano DO</td><td>Mitesh Robles MD [facility]</td><td>07/20/2019</td><td>2:52PM</td><td>4:06PM</td><td><content ID="encounterDiagnosisID1-0">Essential Hypertension</content>, <content ID="encounterDiagnosisID1-1">Macular Degeneration Nonexudative Bilateral Early Dry Stage</content>, <content ID="encounterDiagnosisID1-2">Dry Eye Syndrome</content>, <content ID="encounterDiagnosisID1-3">Chorioretinal Scar</content>, <content ID="encounterDiagnosisID1-4">Cataract Senile Anterior Subcapsular Polar</content>, <content ID="encounterDiagnosisID1-5">Cataract Senile Cortical</content></td> Attender: ELISA Rod MD [facility] 07/20/2019 02:52:00 PM EST - 07/20/2019 04:06:00 PM ES T Essential HypertensionCataract Senile CorticalCataract Senile Anterior Subcapsular PolarChorioretinal ScarDry Eye SyndromeMacular Degeneration Nonexudative Bilateral Early Dry Stage CASIE (Mitesh Blanco MD [facility]) Essential Hypertension Cataract Senile Cortical Cataract Senile Anterior Subcapsular Darian ar Chorioretinal Scar Dry Eye Syndrome Macular Degeneration Nonexudative Bilate ral Early Dry Stage Immunizations Vaccine Date Status Description Data Source(s) New in 2012. IIV4 03/29/2020 10:28:00 AM EDT completed [facility] ([facility]) New in 2012. IIV4 07/26/2019 03:04:00 PM EST completed MED[facility] ([facility]) Medications Medication Brand Name Start Date Product Form Dose Route Admi nistrative Instructions Pharmacy Instructions Status Indications Reaction Description Data Source(s) 0.075 % 08/15/2020 12:00:00 AM EST drops 5 STARTING 3 DAYS BEFORE SURGERY, INSTILL ONE DROP IN THE RIGHT EYE TWO TIMES A DAY STARTING 3 DAYS BEFORE SURGERY, INSTILL ONE DROP IN THE RIGHT EYE TWO TIMES A DAY SOLD: 08/19/2020 [facility] moxifloxacin 5 MG/ML Ophthalmic Solution 0.5 % MOXIFLOXACIN HCL 08/15/2020 12:00:00 AM EST drops 3 STARTING 3 DAYS BEFORE SURGERY, INSTILL ONE DROP IN THE RIGHT EYE FOUR TIMES A DAY STARTING 3 DAYS BEFORE SURGERY, INSTILL ONE DROP IN THE RIGHT EYE FOUR TIMES A DAY SOLD: 08/19/2020 [facility] 1 % 08/15/2020 12:00:00 AM EST drops,suspension 2 ON DAY OF SURGERY, REMOVE PATCH AND INSTILL ONE DROP IN THE RIGHT EYE TWO TIMES A DAY ON DAY OF SURGERY, REMOVE PATCH AND INSTILL ONE DROP IN THE RIGHT EYE TWO TIMES A DAY SOLD: 08/19/2020 [facility] 30 ACTUAT fluticasone furoate 0.2 MG/ACT UAT / vilanterol 0.025 MG/ACTUAT Dry Powder Inhaler [Breo] Breo Ellipta 06/28/2020 12:00:00 AM EST active [facility] ([facility]) montelukast 10 MG Oral Tablet Montelukast Sodium 10 MG Oral Tablet Montelukast Sodium 10 MG Oral Tablet 06/18/2020 12:00:00 AM EST 1 active montelukast 10 MG Oral Tablet CASIE (Mitesh Blanco MD [facility]) 30 ACTUAT fluticasone furoate 0.1 MG/ACT UAT / vilanterol 0.025 MG/ACTUAT Dry Powder Inhaler [Breo] Breo Ellipta 100-25 MCG/INH Inhalation Aerosol Powder Breath Activated Breo Ellipta 100-25 MCG/INH Inhalation A erosol Powder Breath Activated 06/18/2020 12:00:00 AM EST active 30 ACTUAT fluticasone furoate 0.1 MG/ACTUAT / vilanterol 0.025 MG/ACTUAT Dry Powder Inhaler [Breo] CASIE (Mitesh Blanco MD [facility]) 24 HR metoprolol succinate 25 MG Extende d Release Oral Tablet Metoprolol Succinate ER 25 MG Oral Tablet Extended Release 24 Hour (TOPROL-XL) Metoprolol Succinate ER 25 MG Oral Tablet Extended Release 24 Hour (TOPROL-XL) 06/04/2020 12:00:00 AM EST 25 mg Oral active Take 1 t ablet by mouth daily [facility] montelukast 10 MG Oral Tablet Montelukast Sodium 10 MG Oral Tablet (SINGULAIR) Montelukast Sodium 10 MG Oral Tablet (SINGULAIR) 03/27/2020 12:00:00 AM EDT 10 mg Oral active Take 10 mg by mouth [facility]. Devices (DURABLE MEDICAL EQUIPMENT SEE SIG) [place] [facility] [place] [id number] 03/14/2020 12:00:00 AM EDT act ting Malignant neoplasm of right breast in female, estrogen receptor negative, unspecified site of breast Use as directed. Right breast prosthesis, hx breast [facility] Malignant neoplasm of right breast in fe male, estrogen receptor negative, unspecified site of breast Misc. Devices (DURABLE MEDICAL EQUIPMENT SEE SIG) XX MISC 97 [id number] 03/14/2020 12:00:00 AM EDT act ting Malignant neoplasm of right breast in female, estrogen receptor negative, unspecified site of breast Use as directed. Mastectomy bra - hx of right mastectomy Dx: Breast Cancer [facility] Malignant neoplasm of right breast in fe male, estrogen receptor negative, unspecified site of breast atorvastatin 20 MG Oral Tablet Atorvastatin Calcium 02/06/2020 1 2:00:00 AM EDT ORAL active MEDENT ( [facility] [place]) atorvastatin 20 MG Oral Tablet Atorvastatin Calcium 02/06/2020 1 2:00:00 AM EDT ORAL completed MEDENT ([facility]) 30 ACTUAT fluticasone furoate 0.1 MG/ACT UAT / vilanterol 0.025 MG/ACTUAT Dry Powder Inhaler [Breo] Breo Ellipta 100-25 MCG/INH Inhalation Aerosol Powder Breath Activated (Fluticasone Furoate-Vilanterol) Breo Ellipta 100-25 MCG/INH Inhalation Aerosol Powder Breath Activated (Fluticasone Furoate-Vilanterol) 01/20/2020 12:00:00 AM EDT 1 {inhaler} Inhalation active Inhale 1 Inhaler into the lungs daily [facility] 30 ACTUAT fluticasone furoate 0.1 MG/ACT UAT / vilanterol 0.025 MG/ACTUAT Dry Powder Inhaler [Breo] Breo Ellipta 01/20/2020 12:00:00 AM EDT completed MEDENT ([facility]) 24 HR metoprolol succinate 25 MG Extende d Release Oral Tablet Metoprolol Succinate ER 25 MG Oral Tablet Extended Release 24 Hour (TOPROL-XL) Metoprolol Succinate ER 25 MG Oral Tablet Extended Release 24 Hour (TOPROL-XL) 11/11/2019 12:00:00 AM EDT 25 mg Oral aborted Take 1 tablet by mouth daily [facility] Plenvu Plenvu 08/22/2019 12:00:00 AM EST active [facility]ENT ([facility]) montelukast 10 MG Oral Tablet Montelukast Sodium 07/26/2019 12:00:00 AM EST ORAL active MEDENT ([facility]) Metoprolol 25 MG Oral Tablet Metoprolol 25 MG Oral Tablet 12:00:00 AM EST 1 active Metoprolol GREENW AY (Mitesh Blanco MD [facility]) [facility] [place]. Devices (DURABLE MEDICAL EQUIPMENT SEE SIG) [facility] [id number] 03/03/2019 12:00:00 AM EDT aborted Use as directed. Mastectomy bra - hx of right mastectomy Dx: Breast Cancer [facility] Metoprolol 50 mg Oral Tablet Metoprolol 50 mg Oral Tablet 12:00:00 AM EDT aborted Metoprolol GREEN WAY (Mitesh Blanco MD [facility]) Insurance Providers Payer name Policy type / Coverage type Policy ID Covered democrat ID Covered democrat's relationship to giordano Policy Giordano Plan Information [place]BS [place] 302/307 [id number] SP [id number] [place] 306/806 [id number] SP [id number] BCBS of [facility] Other 0 Self 0 EXCELLUS [id number] Self [id number] Blue Shield of [facility] [id number] 18 [id number] Blue Cross Blue Shield Commercial [id number] Self [id number] [employer] Commercial [id number] Self [id number] Blue Cross Blue Shield P [id number] SELF [id number] Blue Shield [place] Commercial [id number] Self [id number] Blue Cross Blue Shield P pending SELF pending [employer] [id number] Self [id number] [facility] Blue Shield Health Maintenance Organization (HMO) [id number] Self [id number] [employer] [id number] Self [id number] [employer] Blue Shield Health Maintenance Organization (HMO) [id number] Self [id number] Blue Cross Blue Shield Commercial [id number] Self [id number] [employer] Commercial [id number] Self [id number] Blue Cross Blue Shield Commercial [id number] Self [id number] [employer] Commercial [id number] Self [id number] Blue Cross Blue Shield Commercial [id number] Self [id number] [employer] Commercial [id number] Self [id number] Blue Cross Blue Shield Commercial [id number] Self [id number] [employer] Commercial [id number] Self [id number] Blue Cross Blue Shield Commercial [id number] Self [id number] [employer] Commercial [id number] Self [id number] Blue Cross Blue Shield Commercial [id number] Self [id number] [employer] Commercial [id number] Self [id number] Blue Cross Blue Shield Commercial [id number] Self [id number] [employer] Commercial [id number] Self [id number] Blue Shield [place] Commercial [id number] Self [id number] Blue Cross Blue Shield Commercial [id number] Self [id number] [employer] Commercial [id number] Self [id number] Blue Cross Blue Shield Commercial [id number] Self [id number] [employer] Commercial [id number] Self [id number] Blue Cross Blue Shield Commercial [id number] Self [id number] [employer] Commercial [id number] Self [id number] EXCELLUS BCBS B [id number] S [id number] BCBS [employer] Health Maintenance Organization (HMO) [id number] Self [id number] BCBS OF [place] 306/806 [id number] SP [id number] BCBS [employer] Health Maintenance Organization (HMO) [id number] Self [id number] Blue Cross Blue Shield Commercial [id number] Self [id number] [employer] Commercial [id number] Self [id number] BCBS/[employer]cell[employer] Commercial [id number] Self [id number] Blue Cross Blue Shield Commercial [id number] Self [id number] [employer] Commercial [id number] Self [id number] BCBS/[employer] Commercial [id number] Self [id number] Blue Cross Blue Shield Commercial [id number] Self [id number] [employer] Commercial [id number] Self [id number] BCBS/[employer] Commercial [id number] Self [id number] Blue Cross Blue Shield Commercial [id number] Self [id number] [employer] Commercial [id number] Self [id number] EXCELLUS BCBS [id number] Tiffanie NFJ [facility] [id number] BCBS/[employer] Commercial Self Blue Cross Blue Shield Commercial Self [employer] Commercial Self POMCO [id number] Self [id number] POMCO O [id number] S [id number] Problems, Conditions, and Diagnoses Code Display Name Description Problem Type Effective Dates Data Source(s) 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 Vitreous Disorders Deg eneration Problem 06/20/2020 12:00:00 AM EST CASIE (Mitesh Blanco MD [facility]) 401.9 Essential Hypertension Essential Hypertension Problem 06/20/2020 12:00:00 AM EST CASIE (Mitesh Blanco MD [facility]) Z98.890 Other specified postprocedural states Ot her specified postprocedural states Diagnosis 06/04/2020 03:57:39 PM [facility] R92.2 Inconclusive mammogram Inconclusive mammogram Diagnosi s 03/14/2020 02:01:26 PM [facility] Z12.31 Encounter for screening mammogram for ma lignant neoplasm of breast Encounter for screening mammogram for malignant neoplasm of breast Diagnosis 03/14/2020 02:01:26 PM [facility] Surgeries/Procedures Procedure Description Date Indications Data Source(s) Allergy Antigens Single Or Multiple 08/14/2020 12:00:0 0 AM EST [facility] ([facility]) Allergy Injection 2 Or More 08/02/2020 12:00:00 AM EST [facility] ([facility]) Allergy Injection 2 Or More 07/19/2020 12:00:00 AM EST [facility] ([facility]) Allergy Injection 2 Or More 07/03/2020 12:00:00 AM EST [facility] ([facility]) NONINVASIVE EAR/PULSE OXIMETRY SINGLE DETER 06/28/2020 12:00:00 AM EST MED[facility] ([facility]) Allergy Injection 2 Or More 06/21/2020 12:00:00 AM EST [facility] ([facility]) Surgical / procedural history 1989, Mastectomy 1996, Hysterectomy 2010, Heart Ablation 2015 Surgical / procedural history 1989, Mastectomy 1996, Hysterectomy 2010, Heart Ablation 2016 06/20/2020 12:00:00 AM EST CASIE (Mitesh Blanco MD [facility]) Intermediate Eye Exam Established Patient Intermediate Eye Exam Established Patient 06/18/2020 12:00:00 AM EST CASIE (Perez roberth Blanco MD [facility]) Allergy Antigens Single Or Multiple 05/28/2020 12:00:0 0 AM EST [facility] ([facility]) Allergy Injection 2 Or More 05/24/2020 12:00:00 AM EST [facility] ([facility]) Allergy Injection 2 Or More 05/10/2020 12:00:00 AM EDT [facility] ([facility]) Allergy Injection 2 Or More 04/26/2020 12:00:00 AM EDT [facility] ([facility]) Allergy Injection 2 Or More 04/12/2020 12:00:00 AM EDT [facility] ([facility]) Allergy Injection 2 Or More 03/29/2020 12:00:00 AM EDT [facility] ([facility]) Allergy Antigens Single Or Multiple 03/16/2020 12:00:0 0 AM EDT [facility] ([facility]) Allergy Injection 2 Or More 03/15/2020 12:00:00 AM EDT [facility] ([facility]) DO NOT USE PRIOR TO 11/11/2015 US BREAST INCLUDING AXILL A COMPLETE LEFT 30610 DO NOT USE PRIOR TO 11/11/2015 US BREAST INCLUDING AXILLA COMPLETE LEFT 11843 Routine 03/14/2020 1:41 PM EDT Personal history of malignant neoplasm of breast Dense breasts 03/14/2020 01:41:36 PM EDT Dense breasts Personal history of malignant neoplasm of [facility] Dense breasts Personal history of malignant neoplasm o f breast MAMMO DIGITAL SCREENING LEFT G0202 52 MAMMO DIGITAL SCREENI NG LEFT G0202 52 Routine 03/14/2020 1:24 PM EDT Personal history of malignant neoplasm of breast Screening mammogram, encounter for 03/14/2020 01:24:00 PM ED T Screening mammogram, encounter forPersonal history of malignant neoplasm of [facility] Screening mammogram, encounter for Personal history of malignant neoplasm o f breast Mammogram 03/14/2020 12:00:00 AM EDT M EDENT ([facility]) Allergy Injection 2 Or More 03/01/2020 12:00:00 AM EDT [facility] ([facility]) Allergy Injection 2 Or More 02/16/2020 12:00:00 AM EDT [facility] ([facility]) Allergy Injection 2 Or More 02/02/2020 12:00:00 AM EDT [facility] ([facility]) SPMTRY W/VC EXPIRATORY ELOINA +-MXML VOL VNTJ 01/20/2020 12:00:00 AM EDT [facility] ([facility]) Allergy Injection 2 Or More 01/03/2020 12:00:00 AM EDT [facility] ([facility]) Allergy Injection 2 Or More 12/20/2019 12:00:00 AM EDT [facility] ([facility]) Allergy Antigens Single Or Multiple 12/15/2019 12:00:0 0 AM EDT [facility] ([facility]) Allergy Injection 2 Or More 12/06/2019 12:00:00 AM EDT [facility] ([facility]) Allergy Injection 2 Or More 11/22/2019 12:00:00 AM EDT [facility] ([facility]) Allergy Injection 2 Or More 11/08/2019 12:00:00 AM EDT [facility] ([facility]) Allergy Injection 2 Or More 11/01/2019 12:00:00 AM EDT [facility] ([facility]) Allergy Injection 2 Or More 10/24/2019 12:00:00 AM EDT [facility] ([facility]) Allergy Injection 2 Or More 10/17/2019 12:00:00 AM EDT [facility] ([facility]) Allergy Injection 2 Or More 10/10/2019 12:00:00 AM EDT [facility] ([facility]) Allergy Injection 2 Or More 09/26/2019 12:00:00 AM EDT [facility] ([facility]) Allergy Antigens Single Or Multiple 09/15/2019 12:00:0 0 AM EST [facility] ([facility]) Allergy Injection 2 Or More 09/12/2019 12:00:00 AM EST [facility] ([facility]) Allergy Injection 2 Or More 08/29/2019 12:00:00 AM EST [facility] ([facility]) Allergy Injection 2 Or More 08/02/2019 12:00:00 AM EST [facility] ([facility]) X-Ray Chest 2 Views 07/26/2019 12:00:00 AM EST [facility] ([facility]) SPMTRY W/VC EXPIRATORY ELOINA +-MXML VOL VNTJ 07/26/2019 12:00:00 AM EST [facility] ([facility]) Scodi Retina, with interpretation and re port (WAIVER OF LIABILITY ON FILE (ABN)) Scodi Retina, with interpretation and re port (WAIVER OF LIABILITY ON FILE (ABN)) 07/20/2019 12:00:00 AM EST CASIE (Perez Blanco MD [facility]) Comprehensive eye exam established patient (Signi/Sep Eval. & Man.) Comprehensive eye exam established patient (Signi/Sep Eval. & Man.) 07/20/2019 12:00:00 AM EST CASIE (Mitesh Blanco MD [facility]) Allergy Injection 2 Or More 07/19/2019 12:00:00 AM EST [facility] ([facility]) Allergy Injection 2 Or More 07/04/2019 12:00:00 AM EST [facility] ([facility]) Allergy Antigens Single Or Multiple 06/29/2019 12:00:0 0 AM EST [facility] ([facility]) Results ID Date Data Source [id number] 08/18/2020 09:15:00 AM EST [facility] Name Value Range Interpretation Code Description Data Daniela rce(s) Supporting Document(s) SARS coronavirus 2 RNA Not Detected [facility] This lab was ordered by [facility] and reported by [facility]. ID Date Data Source [id number] 06/28/2020 03:35:00 PM EST [facility] ([facility] Name Value Range Interpretation Code Description Data Daniela rce(s) Supporting Document(s) Glucose [Mass/volume] in Serum or Plasma 81.00 mg/dL 70.00-110.00 [facility] ([facility]) GFR 68.75 mL/min [facility]) <content>NORMAL FUNCTION OR MILD RENAL D ISEASE:>60 ml/min</content>
<content>ADVANCED RENAL DISEASE:15-59 ml/min</content>
<content>RENAL FAILURE:<15 ml/min</content>
<content></content> Urea nitrogen [Mass/volume] in Serum or Plasma 21 mg/dL 8-21 [facility] ([facility]) Creatinine [Mass/volume] in Serum or Plasma 0.9 mg/dL 0.6-1.1 [facility] ([facility]) Sodium [Moles/volume] in Serum or Plasma 141 mmol/L 136-145 [facility] ([facility]) Potassium [Moles/volume] in Serum or Plasma 4.5 mmol/L 3.5-5.1 [facility] ([facility]) Protein [Mass/volume] in Serum or Plasma 7.4 g/dL 6.4-8.3 [facility] ([facility]) Chloride [Moles/volume] in Serum or Plasma 104 mmol/L 98-107 MED[facility] ([facility]) Albumin [Mass/volume] in Serum or Plasma 4.20 g/dL 3.30-5.00 [facility] ([facility]) Alkaline phosphatase [Enzymatic activity/volume] in Serum or Plasma 113 U/L 40-150 [facility] ([facility]) Aspartate aminotransferase [Enzymatic activity/volume] in Serum or Plasma 15 U/L 5-34 [facility] ([facility]) Alanine aminotransferase [Enzymatic activity/volume] in Seru m or Plasma 16 U/L 0-55 MED[facility] ([facility]) Carbon dioxide, total [Moles/volume] in Serum or Plasma 28.0 0 mmol/L 22.00-31.00 MED[facility] ([facility]) Albumin/Globulin [Mass Ratio] in Serum or Plasma 1.31 Ratio MEDENT ([facility]) Bilirubin.total [Mass/volume] in Serum or Plasma 0.4 mg/dL 0.2-1.2 [facility] ([facility]) Calcium [Mass/volume] in Serum or Plasma 9.50 mg/dL 8.90-10.40 [facility] ([facility]) Osmolality of Serum or Plasma by calculation 294.00 275.00-295.00 [facility] ([facility]) Globulin [Mass/volume] in Serum by calculation 3.20 2.30-4.20 [facility] ([facility]) Urea nitrogen/Creatinine [Mass Ratio] in Serum or Plasma 23.60 Ratio [facility] ([facility]) ID Date Data Source [id number] 06/28/2020 03:35:00 PM EST [facility] ([facility] Name Value Range Interpretation Code Description Data Daniela rce(s) Supporting Document(s) Cholesterol [Mass/volume] in Serum or Plasma 196 mg/dL 112-200 [facility] ([facility]) GOAL LESS THAN 200 Triglyceride [Mass/volume] in Serum or Plasma 346 mg/dL 1-200 [facility] ([facility]) GOAL LESS THAN 200 Cholesterol in HDL [Mass/volume] in Serum or Plasma 52 mg/dL 30-85 [facility] ([facility]) GOAL GREATER THAN 45 Cholesterol.total/Cholesterol in HDL [Mass Ratio] in Serum o r Plasma 3.77 4.00-6.70 [facility] ([facility]) Cholesterol in LDL [Mass/volume] in Serum or Plasma by calcu lation 74.80 mg/dL 20.00-130.00 [facility] ([facility]) GOAL LESS THAN 100 Cholesterol non HDL [Mass/volume] in Serum or Plasma 144.00 mg/dL 0 .00-100.00 [facility] ([facility]) GOAL LESS THAN 100 ID Date Data Source [id number] 06/28/2020 03:35:00 PM EST [facility] ([facility] Name Value Range Interpretation Code Description Data Daniela rce(s) Supporting Document(s) Free T4 1.12 ng/dL 0.70-1.48 [facility] ([facility]) TSH 2.093 uIU/mL 0.350-4.940 [facility] ([facility] ID Date Data Source [id number] 06/28/2020 03:35:00 PM EST [facility] ([facility] Name Value Range Interpretation Code Description Data Daniela rce(s) Supporting Document(s) Glucose [Mass/volume] in Serum or Plasma 81.00 mg/dL 70.00-110.00 [facility] ([facility]) Urea nitrogen [Mass/volume] in Serum or Plasma 21 mg/dL 8-21 [facility] ([facility]) Sodium [Moles/volume] in Serum or Plasma 141 mmol/L 136-145 [facility] ([facility]) Creatinine [Mass/volume] in Serum or Plasma 0.9 mg/dL 0.6-1.1 [facility] ([facility]) GFR 68.75 mL/min [facility] ([facility]) <content>NORMAL FUNCTION OR MILD RENAL D ISEASE:>60 ml/min</content>
<content>ADVANCED RENAL DISEASE:15-59 ml/min</content>
<content>RENAL FAILURE:<15 ml/min</content>
<content></content>
<content></content> Chloride [Moles/volume] in Serum or Plasma 104 mmol/L 98-107 [facility] ([facility]) Potassium [Moles/volume] in Serum or Plasma 4.5 mmol/L 3.5-5.1 [facility] ([facility]) Protein [Mass/volume] in Serum or Plasma 7.4 g/dL 6.4-8.3 [facility] ([facility]) Albumin [Mass/volume] in Serum or Plasma 4.20 g/dL 3.30-5.00 [facility] ([facility]) Alanine aminotransferase [Enzymatic activity/volume] in Seru m or Plasma 16 U/L 0-55 [facility] ([facility]) Aspartate aminotransferase [Enzymatic activity/volume] in Serum or Plasma 15 U/L 5-34 [facility] ([facility]) Alkaline phosphatase [Enzymatic activity/volume] in Serum or Plasma 113 U/L 40-150 [facility]) Albumin/Globulin [Mass Ratio] in Serum or Plasma 1.31 Ratio [facility] ([facility]) Carbon dioxide, total [Moles/volume] in Serum or Plasma 28.0 0 mmol/L 22.00-31.00 [facility]) Osmolality of Serum or Plasma by calculation 294.00 275.00-295.00 [facility] ([facility]) Calcium [Mass/volume] in Serum or Plasma 9.50 mg/dL 8.90-10.40 [facility] ([facility]) Globulin [Mass/volume] in Serum by calculation 3.20 2.30-4.20 [facility] ([facility]) Bilirubin.total [Mass/volume] in Serum or Plasma 0.4 mg/dL 0.2-1.2 [facility] ([facility]) Urea nitrogen/Creatinine [Mass Ratio] in Serum or Plasma 23.60 Ratio [facility] ([facility]) ID Date Data Source [id number] 06/28/2020 03:35:00 PM EST [facility] ([facility] Name Value Range Interpretation Code Description Data Daniela rce(s) Supporting Document(s) Thyrotropin [Units/volume] in Serum or Plasma 2.093 uIU/mL 0.350-4.94 0 [facility] ([facility]) Thyroxine (T4) free [Mass/volume] in Serum or Plasma 1.12 ng/dL 0.70- 1.48 [facility] ([facility]) ID Date Data Source [id number] 06/07/2020 12:00:00 AM EST [facility] Name Value Range Interpretation Code Description Data Daniela rce(s) Supporting Document(s) SARS coronavirus 2 RNA [Presence] in Res piratory specimen by GLENDA with probe detection [facility] This lab was ordered by [facility] and reported by [employer]. ID Date Data Source [id number] 06/04/2020 04:15:59 PM EST [facility] Name Value Range Interpretation Code Description Data Daniela rce(s) Supporting Document(s) Progress Note [facility] [id number] [facility] [file] AgICAgICAgICAgICAgICAgICAgICAgICAgICAgICAgICAgICAgICAgICAgICAgICAgICAgICAgICAgIC AgICAgICAgICAgICAgICAgICANCiAgICAgICAgICAg ICAgICAgICAgICAgICAgICAgICAgICAgICAgICAgICAgICAgICAgICAgICAgICAgICAgICAgICAgICAg ICAgICAgICAgICAgICAgICAgICAgICAgICAgICANCiAgICAgICAgICAgICAgICAgICAgICAgICAgICAg ICAgICAgICAgICAgICAgICAgICAgICAgICAgICAgIC AgICAgICAgICAgICAgICAgICAgICAgICAgICAgICAgICAgICAgICANCiAgICAgICAgICAgICAgICAgIC AgICAgICAgICAgICAgICAgICAgICAgICAgICAgICAgICAgICAgICAgICAgICAgICAgICAgICAgICAgIC AgICAgICAgICAgICAgICAgICAgICANCiAgICAgICAg ICAgICAgICAgICAgICAgICAgICAgICAgICAgICAgICAgICAgICAgICAgICAgICAgICAgICAgICAgICAg ICAgICAgICAgICAgICAgICAgICAgICAgICAgICAgICANCiAgICAgICAgICAgICAgICAgICAgICAgICAg ICAgICAgICAgICAgICAgICAgICAgICAgICAgICAgIC AgICAgICAgICAgICAgICAgICAgICAgICAgICAgICAgICAgICAgICAgICANCiAgICAgICAgICAgICAgIC AgICAgICAgICAgICAgICAgICAgICAgICAgICAgICAgICAgICAgICAgICAgICAgICAgICAgICAgICAgIC AgICAgICAgICAgICAgICAgICAgICAgICANCiAgICAg ICAgICAgICAgICAgICAgICAgICAgICAgICAgICAgICAgICAgICAgICAgICAgICAgICAgICAgICAgICAg ICAgICAgICAgICAgICAgICAgICAgICAgICAgICAgICAgICANCiAgICAgICAgICAgICAgICAgICAgICAg ICAgICAgICAgICAgICAgICAgICAgICAgICAgICAgIC AgICAgICAgICAgICAgICAgICAgICAgICAgICAgICAgICAgICAgICAgICAgICANCiAgICAgICAgICAgIC AgICAgICAgICAgICAgICAgICAgICAgICAgICAgICAgICAgICAgICAgICAgICAgICAgICAgICAgICAgIC AgICAgICAgICAgICAgICAgICAgICAgICAgICANCjw/ qJQgW4qhbFUeipP9B9xgDr6NTg1DSZ2kj3TkKQZvZPxahzQgXzrGJlGzDMRaTpzVMly3JHbyTM8LyHLb G5TzI8EeMUvcEZ4BAJBqTMHayKHrMRChYWXgWoV3CKVxQJicGM2NtFNcTOkmXYBcMVEzBjIvHQCeDARk DMHnPDTlGZBXFKDqUZSkOfAvNCLtGFBxWA8GWXShR2 53edNqUx5MEu4VDxKsEV2ihz6TWvobMRPySltIWhf4NXqpKO6ZrEXyhRHkFWVnHCIBVtOfZ8yjm9EcQy fxRBOARXptUV9Rr8EzlKPfFCv+De6POL9xg2ImKHxmMGUdKS2ztu7XQLfSIxGeP4HuuZxyRHIyf9bfVX RpNE8icLYnWAH3JWqsnaA7OBBlJ2crqupsyVFnPQ9O ELK9KWPfYaKtBnOcCbNiYFE7RoUgTL4pGCkaOK8OYVB0NRlrWAGrGJVhP8sBCaGmOHWmLKAwzLmwMX9B SlBbQ3JwxkRyfQDrBTHdZTMZMb0+VFehrrIvHmqPIsUeWAUrp1VbJTw9YW0GNHQsPFybLA6DIBEnzO8r JNtiUF8JVzYjBoOpAZTQYhCoH40fmWNjQTi8H0OqCd VkZGVkRmlsZXMgPDwvTmFtZXMgWyBdDQogID4+ID4+UMqtRC7CGGyzmmBsQVSiXs9KSXQxGXIeBU4dWG LwRFXzF6O2iJdrBOIXCjOaL0xfmtwbHC3vEAOsL818oDuqwmSxIKK2ONMjRs2YYHMzZXZ5UXMybJPiTf hwNCSXIZovZF4OpPMqRQA3iL3pAVsoYGGnDHVbO3sU AgWngLmpWP97wAeieiMmjMJtQXz+Wh4AMN1zj5OzXDw3bwXsJGhaOQLtYOhzVYZqECDkPMSsRPJ3WSW1 JXKRQnNmOBMrIHNeFHnlUOMmHPDjcg5IQNXzCOD4Kak4NmMgIDVzJVHfRZbyATZtRCX7WER8GHUeHURg ER3EZpAzXOBmDLLfINmbWEUdIEKhet4BJPQmLRXrVu v3TjIbYBIuSBGvEMgqVPLwXBJwEVR6XSRgDEAuWT8NHaOkUVPnWRcdGhntGMRzAIHbdd5WLPTeRBZyAo R5LESdANXeMNFhJPfbZFBxZJDsMXE3AEZiYMNyAW3OUcVpLTBlNAIeZzxsTZYkXXWskr7BAHZzLAPpXx S8PTTmBTLcEUMlSUfkKKVnFLKxWNC2BLOeHMTwKG2G NwBlMPFuKLL0GfjzYFReAXTfai2MVVCeQUGpCsN6BXIiJRTlTBFzWFkuBSDvVDU6QeE8ZZDjLJMdDA4H RqEnHNEiPBc9PSVoBHSlKCCqtl9CEQUoMSDiRSFcTFPnQQOzQELjCDfaTHJwFHN3KzVdYMSmIUQwEN4D XdYaHWFhXGe7CGSvEXRmAVIguw2NLRQgFNQwHBh3Sn SjAOMsGNIzSLvsMVLwDPD4PMB3ALXxCDHnCM0XOmPaADYiRsTmGdUxGGIqONWfcl0MSDMsDMT5CPX2MA YhNRMkTSFmCPizUIImUGEkWoG3OGDiBWAdYG7JEvGoOBHeWTM5DgCpLUEbVOXbio7HHIXxSDG1HvP3Jr KtXLEcBCCcEUlcGJGnNYViFLX4NRKnAPFmBF2NEpMm HKDvPEK7BtDdJQOpPKGegm1ZXPPqEMQ2Lzz5OAFjGSKfIPZcMGnpANOmPQD7GJU7LNTyMXIdFI1OXzEi YLFsTWHgLmvwJAVmGDPtnm1RZLFdGDO4TMF0UWVuRSCrZHInGDerHPZzTOF9RWXzTJTlZEPyIN5VWnWr JCPuMKVfOsGaJBNnGINxoc3ZCJOpRAP9MjQ5UaGaEB UwQSGoSQriMTAwFAH8UhJnTGKeROLnHS0EFhOkFNVtAIrxFinkKKXcWFGpal2JARNjGNP7KWU8SQPoDQ YwDLClFFloXNLkOXN7SoIiQZNyXZFhUK2DUqXlHAZrFQn3BvEvENRzXXDath5BkCQzvExzxa1RSZoAVi 2CsQpvCLZmOSriLb7qqZK6SRHiNOLHTd4EyhSjEJWx GRHXJWcmBNXtMPC5KUgbTFIrSDWfJHByVCntPYF6LfgwWGJuMqLfFcTtEeW0AQohF3LiDrV5MTFeMgA1 DJQ8CSJwH2OgJMNwNsL4BFW+KO8eIQt+Rh1Lu8ZraeG9igQpOTh2VGScZz9PXOSJR6QTXv== ID Date Data Source [id number] 04/12/2020 11:30:00 AM EDT [facility] ([facility] [place]) Name Value Range Interpretation Code Description Data Daniela rce(s) Supporting Document(s) Bacteria Laboratory test result [facility] ([facility]) Urine RBC Laboratory test result 0-2 [facility] ([facility]) Urine WBC Laboratory test result 0-5 [facility] ([facility]) Crystals Laboratory test result [facility] ([facility]) Epithelial Cells Laboratory test result [facility] ([facility]) Sperm Laboratory test result [facility] ([facility]) Hyaline casts [Presence] in Urine sediment by Light mi croscopy Laboratory test result [facility] ([facility]) Yeast Laboratory test result [facility] ([facility]) ID Date Data Source [id number] 04/12/2020 10:42:00 AM EDT [facility] ([facility] Name Value Range Interpretation Code Description Data Daniela rce(s) Supporting Document(s) Glucose [Presence] in Urine Laboratory test result [facility] ([facility]) Protein [Presence] in Urine by Test strip Laboratory test result [facility] ([facility]) Ua Nitrite Laboratory test result [facility] ([facility]) Ua Leuko Laboratory test result [facility] ([facility]) Blood [Presence] in Urine by Visual Laboratory test result [facility] ([facility]) Color of Urine Laboratory test result [facility] ([facility]) Ketones [Presence] in Urine by Test strip Laboratory test result [facility] ([facility]) Clarity of Urine Laboratory test result [facility] ([facility]) Bilirubin.total [Presence] in Urine by Test strip Laboratory test res ult [facility] ([facility]) Ua Specific [place] 1.010 1.003-1.030 MEDE NT ([facility]) pH of Urine by Test strip 6.5 5.0-7.5 [facility] ([facility]) Urobilinogen [Mass/volume] in Urine by Test strip 0.2 E.U./dL 0.0-1.0 [facility] ([facility]) ID Date Data Source [id number] 03/14/2020 02:58:23 PM EDT [facility] Name Value Range Interpretation Code Description Data Daniela rce(s) Supporting Document(s) Progress Note [facility] YQOZVz5qFsKBQvIc28/MXIjhCAEpx9BlIQraLQu2HBaiPHFiJ8RvSZW1sV2oEQC8LXwHIyVzKzIeIXWv lbm [file] j71n+lDbDVqxlm/t+BghU1sCA+/klH75++jean marie+83w9og15dofW2c5/i5YostvYZT+XSxN5/gfCN+/g3w [file] AgICAgICAgICAgICAgICAgICAgICAgICAgICAgICAg ICAgICAgICAgICAgICAgICAgICAgICANCiAgICAgICAgICAgICAgICAgICAgICAgICAgICAgICAgICAg ICAgICAgICAgICAgICAgICAgICAgICAgICAgICAgICAgICAgICAgICAgICAgICAgICAgICAgICAgICAg ICAgICANCiAgICAgICAgICAgICAgICAgICAgICAgIC AgICAgICAgICAgICAgICAgICAgICAgICAgICAgICAgICAgICAgICAgICAgICAgICAgICAgICAgICAgIC AgICAgICAgICAgICAgICANCiAgICAgICAgICAgICAgICAgICAgICAgICAgICAgICAgICAgICAgICAgIC AgICAgICAgICAgICAgICAgICAgICAgICAgICAgICAg ICAgICAgICAgICAgICAgICAgICAgICAgICANCiAgICAgICAgICAgICAgICAgICAgICAgICAgICAgICAg ICAgICAgICAgICAgICAgICAgICAgICAgICAgICAgICAgICAgICAgICAgICAgICAgICAgICAgICAgICAg ICAgICAgICANCiAgICAgICAgICAgICAgICAgICAgIC AgICAgICAgICAgICAgICAgICAgICAgICAgICAgICAgICAgICAgICAgICAgICAgICAgICAgICAgICAgIC AgICAgICAgICAgICAgICAgICANCiAgICAgICAgICAgICAgICAgICAgICAgICAgICAgICAgICAgICAgIC AgICAgICAgICAgICAgICAgICAgICAgICAgICAgICAg ICAgICAgICAgICAgICAgICAgICAgICAgICAgICANCiAgICAgICAgICAgICAgICAgICAgICAgICAgICAg ICAgICAgICAgICAgICAgICAgICAgICAgICAgICAgICAgICAgICAgICAgICAgICAgICAgICAgICAgICAg ICAgICAgICAgICANCiAgICAgICAgICAgICAgICAgIC AgICAgICAgICAgICAgICAgICAgICAgICAgICAgICAgICAgICAgICAgICAgICAgICAgICAgICAgICAgIC AgICAgICAgICAgICAgICAgICAgICANCiAgICAgICAgICAgICAgICAgICAgICAgICAgICAgICAgICAgIC AgICAgICAgICAgICAgICAgICAgICAgICAgICAgICAg ICAgICAgICAgICAgICAgICAgICAgICAgICAgICAgICANCjw/mKLpF2gbaYAfmsM3H6bzIm6AIf8MOZ0e q6YaAWGxBGwhjcTqHecOEhUbNGMuLdaIEor0BCizDS3OaDNkT2ChM4AjOMyrZJ9OLYOeKKEemVGwGGHy TJGnSkW5OFIkBCigEL9LrVWqEYoiJEFmIMMfDqDiXR TzJHBjIEPmOT1BOOGpX955zmZdZe5JWg4GEgNrIO7lgv8KFiKuALSzExbKKvc4MGbeKT0KvCYhrVOxSQ GwIUEOFfHeP1nuz6GfHnPdBXWOFNklYO6Ai6FwqQFqKUw+Og9SUU9vn6ApLXouOYIdTH3uze2VOBnRYw WdK2WxwFixYUUgp7ysDSQkHK1raDMsZZA5UUgpdUD8 nC7tAALHTFuySXptNG3VKML6EOkjDj2kYVRkXZGdNiXkXQMKVE2DQVOzGRShvPNqYMMdHTDILX4SDMfi TBU7TLKbgvRjaILyJCrnTC0DJPUhqsMgKeYcTLAGGRr+Tv3ZBV7ws6BiMIiePPFlFO7nfr0DPTxNQhDb K0O8pKZcW3X8BFinAg1JMLWjDHSnNxNgADTOQAffDK 2XAQ3mlsP8KF9RlXJzCHXpVZIdjHQmUNw4M99muXCkHGnaAB8NRPF+Giacomo+Ee9FKIQaKKCiQRIrCkAzTX FNLcAuC6RkP0JJq9SrS4JeEA54pCeshiVsPLcsIN7JBB1oVDCaEAJBVX5SpDViaL3pozMaVdOqHDEUWu CbC40kyTAkBCSpNRLdSHOzFc3TGMZnH2PiycLcdBpa opLiDOSdHIQRXG7GQHfiwqLlmFKetHgeNY10qQlkGT1OPt5QRkQhFK8yrg8DaKRqMc3CCSVuCe2IQYQo UIKqIUHlMOW5BYAkBuAuHNluCIAxEPTxNLR9DOHqDFMdQI6PVqBaCBXoMiK2SHkhYCCqKGCzms3COLLi YTCgNcOwNpStLSHqWVFeXBpcXSAcQGEmXBP2TFUbCZ EdXR9RKeLpIAJmTKZ6EQLvXEXhVFUfli7TAGHvRNCxODU2DHQsQRGwVMIwWLyaIOPwUDZ6KONxFPQcSQ HkBF0BFnIxGZMvWAitSOXvCNBvLDEcrp0HYDDcHROnIFCpQfAjKFLuTEXwROjgKBDwWZH7JpJzJKNcAR VnGY5RZqSeMPItKVE0UNJzZYMwIWJfvo1ZEMMrSPVd KNm5SVQaOEPyAGPkQHsbVJWzRUYnIZfwNIFcPQFgUU7ZWcDsGFFdDUNbHQIhSZDdNPBlxq1YGDQcBTNl GyJ8WwNgNOGjJHByOCglWWEkKPEgAJVnKXWdIPUzWI6GIcKaYAKbXxX2OPWyYXXzDGSiib1OLJIvGOTz MJXbNEVeUEXtHIXeGUelYRXsCIO6LqNoXOTuOYLwCR 9BYqUxIAIdNnP3QIPfGSApKXFxvn6DAONbYGMxPCN5UzLqSVJxSNAdQBmtXDXqYGW2VCp3HRXsIXCjBF 3DXhZgPFObVqU1NFfpKJZqSOYwiq3BZIZlISFsHdXfBHMyWFHnNLIwKCezJBDaGMA6EpC3XTWtDMJqOJ 8CUjVkRSglOJMXNgr5EZfrH5l3BJDmFj4UM7Sdp3Ww ToVmSCLSPHdjCO2mocEgCOMfFn3IC7rXGiysIQE6PpGlF0K2XBMfNgXvHFG3VUTsUkQpSRJbSwSfFS0p JVD1JhegZuWeOzNlUeOlLBQ5DHWyGGEaPWMaHkK2QNKhDmMcHF8YRl9PFtO1IFH7bKBmSx1GZwczVAYS KnTdER1YLLh= ID Date Data Source [id number] 03/14/2020 02:31:01 PM EDT [facility] MAMMO DIGITAL SCREENING LEFT [id number] 52FIN AL RESULTInterpreted by:Cameron Amaro MDUNILATERAL LEFT DIGITAL MAMMOGRAM WITH COMPUTER-AIDED DETECTIONHISTORY: Screening mammography. The patient had a right mastectomy in 1996. She reports no additional family history and no current breast problems. COMPARISON: Mammography dated 03/03/2019, 03/02/2018 and back to REPORTED CLINICAL BREAST EXAM: UnknownTECHNIQUE: Left craniocaudal and mediolateral oblique digital mammograms were obtained with tomosynthesis. Computer-aided detection was utilized. Ultrasound of the left breast was performed as a screening procedure and included evaluation of all four quadrants, the retroareolar space and axilla.FINDINGS: The breast is heterogeneously dense, which may obscure small masses (category C). No abnormal mass, calcification or architectural distortion is identified.There is no significant change compared to prior studies.Ultrasound of the left breast is compared to 03/03/2019. Multiple subcentimeter cysts are again noted though some demonstrate increased internal echogenicity. The largest is located in the superior midline and measures 9.8 mm. A cyst in the lower outer quadrant, 4 cm from the nipple, measures 9 mm. A scar is noted at the 10-11:00 radian. No suspicious solid or cystic masses are seen. No axillary adenopathy is identified.IMPRESSION: 1. Normal left mammogram and screening breast ultrasound. 2. No evidence for malignancy. 3. Recommend routine followup examination in one year. BI-RADS 2 - BENIGN FINDINGSThis document has been electronically signed by Jose Norman MD on 03/14/2020 2:28 PM Name Value Range Interpretation Code Description Data Daniela rce(s) Supporting Document(s) ID Date Data Source [id number] 03/14/2020 02:31:01 PM T [facility] BREAST INCLUDING AXILLA COMPLETE LEFT [id number] RESULTInterpreted by:Cameron Amaro MDUNILATERAL LEFT DIGITAL MAMMOGRAM WITH COMPUTER- AIDED DETECTIONHISTORY: Screening mammography. The patient had a right mastectomy in 1996. She reports no additional family history and no current breast problems. COMPARISON: Mammography dated 03/03/2019, 03/02/2018 and back to [facility] REPORTED CLINICAL BREAST EXAM: UnknownTECHNIQUE: Left craniocaudal and mediolateral oblique digital mammograms were obtained with tomosynthesis. Computer-aided detection was utilized. Ultrasound of the left breast was performed as a screening procedure and included evaluation of all four quadrants, the retroareolar space and axilla.FINDINGS: The breast is heterogeneously dense, which may obscure small masses (category C). No abnormal mass, calcification or architectural distortion is identified.There is no significant change compared to prior studies.Ultrasound of the left breast is compared to 03/03/2019. Multiple subcentimeter cysts are again noted though some demonstrate increased internal echogenicity. The largest is located in the superior midline and measures 9.8 mm. A cyst in the lower outer quadrant, 4 cm from the nipple, measures 9 mm. A scar is noted at the 10-11:00 radian. No suspicious solid or cystic masses are seen. No axillary adenopathy is identified.IMPRESSION: 1. Normal left mammogram and screening breast ultrasound. 2. No evidence for malignancy. 3. Recommend routine followup examination in one year. BI-RADS 2 - BENIGN FINDINGSThis document has been electronically signed by Jose Norman MD on 03/14/2020 2:28 PM Name Value Range Interpretation Code Description Data Daniela rce(s) Supporting Document(s) ID Date Data Source [id number] 02/02/2020 09:09:29 AM EDT [facility] EXAMINATION:Spiral CT chest without cont rast.CLINICAL HISTORY:Cough/evaluate interstitial lung diseaseCOMPARISON:None.TECHNIQUE:Spiral acquired images are obtained from the apex of the lung to the adrenal glands followed bycoronal reconstructions. The standard dose is reduced utilizing Automatic Exposure Controls (AEC).FINDINGS:Right mastectomy. Considerable glandular tissue left breast. Please be sure routine mammographyis being performedAorta normal in caliber. No pathologic adenopathy.Below the diaphragm the adrenal glands are normal.Surgical clips right axilla with right breast prosthesis.No expansile or destructive bony lesions.Segmental bronchi patent. No interstitial lung disease visualized. Minimal linear scar rightmiddle lobe without definite bronchiectasis.There is an oval-shaped nodule in the right middle lobe low suspicion measuring 5 x 3 by 6 mm insize. Consider follow-up 6 months.IMPRESSION:Perhaps mild scar right middle lobe. Low suspicion nodule right middle lobe can be followed in 6months. Right mastectomy.----- Page Break ----- Name Value Range Interpretation Code Description Data [facility] rce(s) Supporting Document(s) ID Date Data Source [id number] 01/20/2020 02:11:00 PM EDT [facility] ([facility]) Name Value Range Interpretation Code Description Data [facility] rce(s) Supporting Document(s) Alpha 1 antitrypsin [Mass/volume] in Serum or Plasma 130.0 mg/dL 90-2 00 [facility] ([facility]) Unless otherwise specified, testing perf ormed by Laboratory [place] [facility] [place] [address] Nuclear Ab [Presence] in Serum Laboratory test result [facility] ([facility]) Unless otherwise specified, testing perf ormed by Laboratory [facility] [place] [place] [address] TSH 2.272 uIU/mL 0.350-4.940 [facility] ([facility]) Free T4 1.06 ng/dL 0.70-1.48 [facility] ([facility]) ID Date Data Source [id number] 01/20/2020 02:11:00 PM EDT [facility] ([facility]) Name Value Range Interpretation Code Description Data Daniela rce(s) Supporting Document(s) Glucose [Mass/volume] in Serum or Plasma 103.00 mg/dL 70.00-110.00 [facility] ([facility]) Urea nitrogen [Mass/volume] in Serum or Plasma 15 mg/dL 7-19 [facility] ([facility]) Creatinine [Mass/volume] in Serum or Plasma 1.0 mg/dL 0.6-1.1 [facility] ([facility]) GFR 60.89 mL/min [facility] ([facility]) <content>NORMAL FUNCTION OR MILD RENAL D ISEASE:>60 ml/min</content>
<content>ADVANCED RENAL DISEASE:15-59 ml/min</content>
<content>RENAL FAILURE:<15 ml/min</content>
<content></content> Potassium [Moles/volume] in Serum or Plasma 4.2 mmol/L 3.5-5.1 [facility] ([facility]) Sodium [Moles/volume] in Serum or Plasma 141 mmol/L 136-145 [facility] ([facility]) Protein [Mass/volume] in Serum or Plasma 7.3 g/dL 6.4-8.3 [facility] ([facility]) Chloride [Moles/volume] in Serum or Plasma 105 mmol/L 98-107 [facility] ([facility]) Aspartate aminotransferase [Enzymatic activity/volume] in Serum or Plasma 19 U/L 5-34 [facility] ([facility]) Alanine aminotransferase [Enzymatic activity/volume] in Seru m or Plasma 13 U/L 0-55 [facility] ([facility]) Albumin [Mass/volume] in Serum or Plasma 4.30 g/dL 3.30-5.00 [facility] ([facility]) Carbon dioxide, total [Moles/volume] in Serum or Plasma 24.0 0 mmol/L 22.00-31.00 [facility] ([facility]) Alkaline phosphatase [Enzymatic activity/volume] in Serum or Plasma 105 U/L 40-150 [facility] ([facility]) Osmolality of Serum or Plasma by calculation 293.08 275.00-295.00 [facility] ([facility]) Albumin/Globulin [Mass Ratio] in Serum or Plasma 1.43 Ratio [facility] ([facility]) Calcium [Mass/volume] in Serum or Plasma 9.20 mg/dL 8.90-10.40 [facility] ([facility]) Bilirubin.total [Mass/volume] in Serum or Plasma 0.6 mg/dL 0.2-1.2 [facility] ([facility]) Globulin [Mass/volume] in Serum by calculation 3.00 2.30-4.20 [facility] ([facility]) Urea nitrogen/Creatinine [Mass Ratio] in Serum or Plasma 15.15 Ratio [facility] ([facility]) ID Date Data Source [id number] 01/20/2020 02:11:00 PM EDT [facility] ([facility]) Name Value Range Interpretation Code Description Data Daniela rce(s) Supporting Document(s) Neutrophils [#/volume] in Blood by Automated count 6.07 2.00-7. 50 [facility] ([facility]) Leukocytes [#/volume] in Blood by Automated count 9.78 k/uL 4.60-10. 20 [facility] ([facility]) Lymphocytes/100 leukocytes in Blood by Automated count 21.7 % 10. 0-50.0 [facility] ([facility]) Neutrophils/100 leukocytes in Blood by Automated count 62.1 % 37. 0-80.0 [facility] ([facility]) Lymphocytes [#/volume] in Blood by Automated count 2.12 K/UL 1.20-4. 80 [facility] ([facility]) Monocytes [#/volume] in Blood by Automated count 0.992 0.000-0.9 00 [facility] ([facility]) Monocytes/100 leukocytes in Blood by Automated count 10.10 % 0.00- 12.00 [facility] ([facility]) Eosinophils [#/volume] in Blood by Automated count 0.485 0.000-0 .700 [facility] ([facility]) Eosinophils/100 leukocytes in Blood by Automated count 4.96 % 0.0 0-7.00 [facility] ([facility]) Basophils [#/volume] in Blood by Automated count 0.109 0.000-0.2 00 [facility] Basophils/100 leukocytes in Blood by Automated count 1.12 % 0.00- 4.00 [facility] ([facility]) Hemoglobin [Mass/volume] in Blood 14.0 g/dL 12.2-18.1 [facility] ([facility]) Erythrocytes [#/volume] in Blood by Automated count 4.85 m/uL 4.04-6 .13 [facility] ([facility]) Hematocrit [Volume Fraction] of Blood by Automated count 41.1 % 3 7.7-47.0 [facility] ([facility]) Erythrocyte mean corpuscular hemoglobin [Entitic mass] by Automated count 28.9 pg 27.0-31.2 [facility] ([facility]) Erythrocyte mean corpuscular volume [Entitic volume] by Auto mated count 84.7 fL 80.0-97.0 [facility] ([facility]) Platelets [#/volume] in Blood by Automated count 251 K/uL 142-424 [facility] ([facility]) Erythrocyte distribution width [Ratio] by Automated count 11.9 % 11.6-14.8 [facility] ([facility]) Erythrocyte mean corpuscular hemoglobin concentration [Mass/volume] by Automated count 34.1 g/dL 31.8-35.4 [facility] ([facility]) Platelet mean volume [Entitic volume] in Blood by Den-Maida 7.4 fL 0.0-99.9 [facility] ([facility]) ID Date Data Source [id number] 01/20/2020 11:17:32 PM EDT [facility] [place] [facility] Name Value Range Interpretation Code Description Data Daniela rce(s) Supporting Document(s) A 1 ANTITRYPSIN @ 130.0 mg/dL (90-200) [facility] [place] [facility] ID Date Data Source [id number] 01/23/2020 02:07:14 PM EDT [facility] [place] [facility] Name Value Range Interpretation Code Description Data Daniela rce(s) Supporting Document(s) JOSH SCREEN @ (NEG) Laboratory [place] [facility] [facility] ID Date Data Source [id number] 01/20/2020 01:57:00 PM EDT [facility] ([facility] Name Value Range Interpretation Code Description Data Daniela rce(s) Supporting Document(s) Chest CT WO contrast Laboratory test result [facility] ([facility]) ID Date Data Source [id number] 08/13/2019 10:23:00 AM EST [facility] ([facility]) Name Value Range Interpretation Code Description Data Daniela rce(s) Supporting Document(s) Influenza-New Molecular Laboratory test result [facility] ([facility]) ID Date Data Source [id number] 07/26/2019 05:00:03 PM EST [facility] Diagnosti c Imaging PROFESSIONAL INTERPRETATION PERFORMED BY :[facility]:PROFESSIONAL INTERPRETATION FOR [facility]:EXAMINATION:Chest, Routine examCLINICAL HISTORY:CoughCOMPARISON:2011TECHNIQUE:PA and Lateral ViewsFINDINGS:Right axillary surgical clips with right mastectomy.Degenerative findings thoracic spine without fracture.Heart size unchanged and normal. Lungs unchanged and clear.IMPRESSION:Unchanged chest. Right mastectomy with axillary clips. Name Value Range Interpretation Code Description Data Daniela rce(s) Supporting Document(s) ID Date Data Source [id number] 07/26/2019 04:13:00 PM EST [facility] ([facility]) Name Value Range Interpretation Code Description Data Daniela rce(s) Supporting Document(s) TSH 2.047 uIU/mL 0.350-4.940 [facility] ([facility]) Free T4 1.21 ng/dL 0.70-1.48 [facility] ([facility]) ID Date Data Source [id number] 07/26/2019 04:13:00 PM EST [facility] ([facility]) Name Value Range Interpretation Code Description Data Daniela rce(s) Supporting Document(s) Urea nitrogen [Mass/volume] in Serum or Plasma 14 mg/dL 7-19 [facility] ([facility]) Creatinine [Mass/volume] in Serum or Plasma 0.8 mg/dL 0.6-1.1 [facility] ([facility]) Glucose [Mass/volume] in Serum or Plasma 98.00 mg/dL 70.00-110.00 [facility] ([facility]) Potassium [Moles/volume] in Serum or Plasma 3.8 mmol/L 3.5-5.1 [facility] ([facility]) GFR 73.73 mL/min [facility] ([facility]) <content>NORMAL FUNCTION OR MILD RENAL D ISEASE:>60 ml/min</content>
<content>ADVANCED RENAL DISEASE:15-59 ml/min</content>
<content>RENAL FAILURE:<15 ml/min</content>
<content></content> Sodium [Moles/volume] in Serum or Plasma 143 mmol/L 136-145 [facility] ([facility]) Chloride [Moles/volume] in Serum or Plasma 103 mmol/L 98-107 [facility] ([facility]) Protein [Mass/volume] in Serum or Plasma 7.9 g/dL 6.4-8.3 [facility] ([facility]) Albumin [Mass/volume] in Serum or Plasma 4.90 g/dL 3.30-5.00 [facility] ([facility]) Alanine aminotransferase [Enzymatic activity/volume] in Seru m or Plasma 14 U/L 0-55 [facility] ([facility]) Aspartate aminotransferase [Enzymatic activity/volume] in Serum or Plasma 19 U/L 5-34 [facility] ([facility]) Albumin/Globulin [Mass Ratio] in Serum or Plasma 1.63 Ratio [facility] ([facility]) Carbon dioxide, total [Moles/volume] in Serum or Plasma 26.0 0 mmol/L 22.00-31.00 [facility] ([facility]) Alkaline phosphatase [Enzymatic activity/volume] in Serum or Plasma 106 U/L 40-150 [facility] ([facility]) Osmolality of Serum or Plasma by calculation 296.44 275.00-295.00 [facility] ([facility]) Calcium [Mass/volume] in Serum or Plasma 10.00 mg/dL 8.90-10.40 [facility] ([facility]) Bilirubin.total [Mass/volume] in Serum or Plasma 0.8 mg/dL 0.2-1.2 [facility] ([facility]) Globulin [Mass/volume] in Serum by calculation 3.00 2.30-4.20 [facility] ([facility]) Urea nitrogen/Creatinine [Mass Ratio] in Serum or Plasma 16.67 Ratio [facility] ([facility]) ID Date Data Source [id number] 07/26/2019 04:13:00 PM EST [facility] ([facility] Name Value Range Interpretation Code Description Data Daniela rce(s) Supporting Document(s) Leukocytes [#/volume] in Blood by Automated count 10.80 k/uL 4.60-10. 20 [facility] ([facility]) Neutrophils [#/volume] in Blood by Automated count 6.99 2.00-7. 50 [facility] ([facility]) Lymphocytes [#/volume] in Blood by Automated count 2.25 K/UL 1.20-4. 80 [facility] ([facility]) Lymphocytes/100 leukocytes in Blood by Automated count 20.8 % 10. 0-50.0 [facility] ([facility]) Neutrophils/100 leukocytes in Blood by Automated count 64.7 % 37. 0-80.0 [facility] ([facility]) Monocytes [#/volume] in Blood by Automated count 1.090 0.000-0.9 00 [facility] ([facility]) Eosinophils/100 leukocytes in Blood by Automated count 3.50 % 0.0 0-7.00 [facility] ([facility]) Eosinophils [#/volume] in Blood by Automated count 0.378 0.000-0 .700 [facility] ([facility]) Monocytes/100 leukocytes in Blood by Automated count 10.10 % 0.00- 12.00 [facility] ([facility]) Erythrocytes [#/volume] in Blood by Automated count 5.22 m/uL 4.04-6 .13 [facility] ([facility]) Basophils/100 leukocytes in Blood by Automated count 0.89 % 0.00- 4.00 [facility] ([facility]) Basophils [#/volume] in Blood by Automated count 0.096 0.000-0.2 00 [facility] ([facility]) Hemoglobin [Mass/volume] in Blood 15.1 g/dL 12.2-18.1 [facility] ([facility]) Erythrocyte mean corpuscular volume [Entitic volume] by Auto mated count 87.6 fL 80.0-97.0 [facility] ([facility]) Hematocrit [Volume Fraction] of Blood by Automated count 45.7 % 3 7.7-47.0 [facility] ([facility]) Erythrocyte mean corpuscular hemoglobin [Entitic mass] by Automated count 28.9 pg 27.0-31.2 [facility] ([facility]) Erythrocyte mean corpuscular hemoglobin concentration [Mass/volume] by Automated count 33.0 g/dL 31.8-35.4 [facility] ([facility]) Erythrocyte distribution width [Ratio] by Automated count 11.1 % 11.6-14.8 [facility] ([facility]) Platelets [#/volume] in Blood by Automated count 288 K/uL 142-424 [facility] ([facility]) Platelet mean volume [Entitic volume] in Blood by Den-Maida 8.0 fL 0.0-99.9 [facility] ([facility]) Procedure Social History Code Duration Value Status Description Data Source(s ) Smoking 06/20/2020 09:48:33 AM EST Never smoked tobacco (findi ng) completed Never smoked tobacco (finding) [place] (Mietsh Blanco MD [facility]) Alcohol intake 06/04/2020 12:00:00 AM EST Current drinker of al cohol (finding) completed Current drinker of alcohol (finding) [facility] Tobacco use and exposure 06/04/2020 12:00:00 AM EST Never used co mpleted Never used [facility] Smoking 06/04/2020 12:00:00 AM EST Never smoker completed Never s [facility] Smoking 04/12/2020 12:00:00 AM EDT Never Smoked Cigarettes com pleted Never Smoked Cigarettes [facility] ([facility]) Alcohol intake 03/14/2020 12:00:00 AM EDT Current drinker of al cohol (finding) completed Current drinker of alcohol (finding) [facility] Smoking 02/29/2020 12:00:00 AM EDT Patient has never smoked co mpleted Patient has never smoked [facility] ([facility]) Smoking 08/13/2019 12:00:00 AM EST Never Smoked Cigarettes com pleted Never Smoked Cigarettes [facility] ([facility]) Vital Signs ID Date Data Source UNK Name Value Range Interpretation Code Description Data Source(s) Body temperature 97.4 [degF] 97.4 [degF] [facility] ([facility]) Body temperature 97.2 [degF] 97.2 [degF] [facility] ([facility]) [place] body weight 110 [lb_av] 110 [lb_av] [facility] ([facility]) Body mass index (BMI) [Ratio] 30.4 kg/m2 30.4 k g/m2 [facility] ([facility]) Body height 62 [in_i] 62 [in_i] [facility] 5'2" Body weight 75.298 kg 75.298 kg [facility] ([facility] Body weight 166.00 [lb_av] 166.00 [lb_av] [facility] T ([facility]) Respiratory rate 12 /min 12 /min [facility] ( [facility] [facility] Body temperature 98.5 [degF] 98.5 [degF] [facility]) Heart rate 76 /min 76 /min [facility] Diastolic blood pressure 78 mm[Hg] 78 mm[Hg] [facility]) Systolic blood pressure 124 mm[Hg] 124 mm[Hg] M EDENT ([facility]) Body temperature 97.3 [degF] 97.3 [degF] [facility] ([facility] Body temperature 98.1 [degF] 98.1 [degF] [facility] ([facility]) Body temperature 96.7 [degF] 96.7 [degF] [facility] ([facility] Body temperature 98.1 [degF] 98.1 [degF] [facility] ([facility]) Body temperature 97.6 [degF] 97.6 [degF] [facility] Heart rate 96 /min 96 /min [facility] Diastolic blood pressure 92 mm[Hg] 92 mm[Hg] [facility] ([facility]) Systolic blood pressure 163 mm[Hg] 163 mm[Hg] M [facility] ([facility]) Body mass index (BMI) [Ratio] 29.3 kg/m2 29.3 k g/m2 [facility] ([facility] Body weight 72.576 kg 72.576 kg [facility] Body weight 160.00 [lb_av] 160.00 [lb_av] [facility] T ([facility]) Body height 62 [in_i] 62 [in_i] [facility] 5'2" Body temperature 98.9 [degF] 98.9 [degF] [facility] ([facility]) Body temperature 97.5 [degF] 97.5 [degF] [facility] ([facility]) Body temperature 98.9 [degF] 98.9 [degF] [facility] ([facility]) Oxygen saturation in Arterial blood by Pulse oximetry 98 % 98 % [facility] ([facility]) [place] body weight 110 [lb_av] 110 [lb_av] [facility] T ([facility]) Body mass index (BMI) [Ratio] 29.3 kg/m2 29.3 k g/m2 [facility] ([facility]) Body height 62 [in_i] 62 [in_i] [facility] 5'2" Body weight 72.576 kg 72.576 kg [facility] Body weight 160.00 [lb_av] 160.00 [lb_av] [facility] T ([facility]) Respiratory rate 16 /min 16 /min [facility] ( [facility]) Body temperature 98.0 [degF] 98.0 [degF] [facility] ([facility]) Heart rate 90 /min 90 /min [facility]) Diastolic blood pressure 80 mm[Hg] 80 mm[Hg] [facility] ([facility]) Systolic blood pressure 124 mm[Hg] 124 mm[Hg] M [facility] ([facility]) Body temperature 98.8 [degF] 98.8 [degF] [facility] ([facility]) Body temperature 98.2 [degF] 98.2 [degF] [facility] ([facility]) Oxygen saturation in Arterial blood by Pulse oximetry 96 % 96 % [facility] ([facility]) Ra Body mass index (BMI) [Ratio] 29.1 kg/m2 29.1 k g/m2 [facility] ([facility]) Body height 62 [in_i] 62 [in_i] [facility] 5'2" Body weight 72.122 kg 72.122 kg [facility] Body weight 159.00 [lb_av] 159.00 [lb_av] [facility] T ([facility]) Respiratory rate 15 /min 15 /min [facility] ( [facility]) Body temperature 98.3 [degF] 98.3 [degF] [facility] ([facility]) Heart rate 94 /min 94 /min [facility]) Diastolic blood pressure 78 mm[Hg] 78 mm[Hg] [facility] ([facility]) Systolic blood pressure 128 mm[Hg] 128 mm[Hg] M ED[facility] ([facility]) Body temperature 98.9 [degF] 98.9 [degF] [facility] ([facility]) Body temperature 98.1 [degF] 98.1 [degF] [facility] ([facility]) Body mass index (BMI) [Ratio] 28.2 kg/m2 28.2 k g/m2 [facility] ([facility]) Body weight 154.00 [lb_av] 154.00 [lb_av] [facility] T ([facility]) Body height 62 [in_i] 62 [in_i] [facility] 5'2" Heart rate 99 /min 99 /min [facility] Diastolic blood pressure 86 mm[Hg] 86 mm[Hg] [facility] ([facility]) Systolic blood pressure 156 mm[Hg] 156 mm[Hg] M [facility] ([facility]) Body mass index (BMI) [Ratio] 28.5 kg/m2 28.5 k g/m2 [facility] ([facility]) Body height 62 [in_i] 62 [in_i] [facility] 5'2" Body weight 70.762 kg 70.762 kg [facility] Body weight 156.00 [lb_av] 156.00 [lb_av] [facility] T ([facility]) Respiratory rate 18 /min 18 /min [facility] ( [facility]) Body temperature 98.3 [degF] 98.3 [degF] [facility] ([facility]) Heart rate 68 /min 68 /min [facility]) Diastolic blood pressure 76 mm[Hg] 76 mm[Hg] [facility] ([facility]) Systolic blood pressure 122 mm[Hg] 122 mm[Hg] M [facility] ([facility]) Body mass index (BMI) [Ratio] 28.7 kg/m2 28.7 k g/m2 [facility] ([facility]) Body height 62 [in_i] 62 [in_i] [facility] 5'2" Body weight 71.215 kg 71.215 kg [facility] Body weight 157.00 [lb_av] 157.00 [lb_av] [facility] T ([facility]) Respiratory rate 16 /min 16 /min [facility] ( [facility]) Body temperature 98.0 [degF] 98.0 [degF] [facility] ([facility]) Heart rate 80 /min 80 /min [facility]) Diastolic blood pressure 78 mm[Hg] 78 mm[Hg] [facility] ([facility]) Systolic blood pressure 138 mm[Hg] 138 mm[Hg] M [facility] ([facility]) ID Date Data Source [id number] 06/04/2020 04:15:59 PM [facility] Name Value Range Interpretation Code Description Data Source(s) WEIGHT RECORDED 160 lb 160 lb [facility] Body height Measured 62 in 62 in [facility] ID Date Data Source [id number] 03/14/2020 02:41:12 PM [facility] Name Value Range Interpretation Code Description Data Source(s) WEIGHT RECORDED 160 lb 160 lb [facility] Body height Measured 62 in 62 in [facility] Patient Treatment Plan of Care Planned Activity Planned Date Details Description Data Source (s) 24 HR metoprolol succinate 25 MG Extended Release Oral Tablet 06/04/2020 12:00:00 AM [facility] ospital montelukast 10 MG Oral Tablet 03/27/2020 12:00:00 AM [facility] Misc. Devices (DURABLE MEDICAL EQUIPMENT SEE SIG) XX M ISC 03/14/2020 12:00:00 AM [facility] Misc. Devices (DURABLE MEDICAL EQUIPMENT SEE SIG) XX M ISC 03/14/2020 12:00:00 AM [facility] 30 ACTUAT fluticasone furoate 0.1 MG/ACT UAT / vilanterol 0.025 MG/ACTUAT Dry Powder Inhaler [Breo] 01/20/2020 12:00:00 AM [facility] 24 HR metoprolol succinate 25 MG Extended Release Oral Tablet 11/11/2019 12:00:00 AM [facility] Misc. Devices (DURABLE MEDICAL EQUIPMENT SEE SIG) MISC 03/03/2019 12:00:00 AM [facility]
--- OUTSIDE RECORDS SUMMARY | 2020-08-23 09:44 | CCD | Continuity of Care Document ---
Author Author All[facility] Dept, [facility] Organization Unknown Address [address] [address] Phone Unavailable Care Team Providers Care Sql Ssis Developer Name Role Phone Peter Myers M.D. AUTM [phone] Problems Description No Information Available Social History [...] Information Available Procedures Date Code Description Status 05/24/2020 62319 Allergy Injection 2 Or More Comp leted 05/10/2020 30013 Allergy Injection 2 Or More Comp leted 04/26/2020 22150 Allergy Injection 2 Or More Comp leted 04/12/2020 61559 Allergy Injection 2 Or More Comp leted 03/29/2020 39220 Allergy Injection 2 Or More Comp leted 03/16/2020 87785 Allergy Antigens Single Or Multi ple Completed 03/15/2020 73834 Allergy Injection 2 Or More Comp leted 03/01/2020 37168 Allergy Injection 2 Or More Comp leted 02/16/2020 00586 Allergy Injection 2 Or More Comp leted 02/02/2020 32144 Allergy Injection 2 Or More Comp leted 01/03/2020 48801 Allergy Injection 2 Or More Comp leted 12/20/2019 53636 Allergy Injection 2 Or More Comp leted 12/15/2019 97186 Allergy Antigens Single Or Multi ple Completed 12/06/2019 30739 Allergy Injection 2 Or More Comp leted Medical Devices Description No Information Available Encounters Description No Information Available Assessments Date Code Description Provider 05/24/2020 J30.1 Allergic rhinitis due to pollen [...] Allergy Dept Plan of Treatment Future Appointment(s):* 08/06/2020 8:25 am - Allergy Dept at [facility] 210 * 06/06/2020 2:45 pm - Allergy Dept at [facility] 210 04/18/2019 - Zaira [...]
--- OUTSIDE RECORDS SUMMARY | 2020-08-23 09:44 | CCD | Continuity of Care Document ---
Author Author [facility] Organization Unknown Address [address] [address] Phone Unavailable Care Team Providers Care Seismic Interpreter Name Role Phone Peter Myers M.D. AUTM [...] Available Procedures Date Code Description Status 05/28/2020 79454 Allergy Antigens Single Or Multi ple Completed 05/24/2020 45711 Allergy Injection 2 Or More Comp leted 05/10/2020 04000 Allergy Injection 2 Or More Comp leted 04/26/2020 77456 Allergy Injection 2 Or More Comp leted 04/12/2020 13983 Allergy Injection 2 Or More Comp leted 03/29/2020 73060 Allergy Injection 2 Or More Comp leted 03/16/2020 22187 Allergy Antigens Single Or Multi ple Completed 03/15/2020 28967 Allergy Injection 2 Or More Comp leted 03/01/2020 93913 Allergy Injection 2 Or More Comp leted 02/16/2020 86568 Allergy Injection 2 Or More Comp leted 02/02/2020 94404 Allergy Injection 2 Or More Comp leted 01/03/2020 50063 Allergy Injection 2 Or More Comp leted 12/20/2019 86865 Allergy Injection 2 Or More Comp leted 12/15/2019 89587 Allergy Antigens Single Or Multi ple Completed 12/06/2019 99518 Allergy Injection 2 Or More Comp leted [...] 08/06/2020 8:25 am - Allergy Dept at [facility] 210 * 06/06/2020 2:45 pm - Allergy Dept at [place] [address] 04/18/2019 - Zaira Luciano NP* J20.9 Acute [...]
[2020-08-23] MEDS ORDERED: BSS IRR 500ML/OMIDRIA 4ML IRR BAG (OR ONLY) As Ordered ONE (09:57)
[2020-08-23 11:43] VITALS: BP 150/72
--- NOTE | 2020-08-24 09:39 | RO ---
OPERATIVE NOTE DATE OF OPERATION: 08/23/2020 PREOPERATIVE DIAGNOSIS: 1. Visually significant nuclear sclerotic cataract, right eye. POSTOPERATIVE DIAGNOSIS: 1. Visually significant nuclear sclerotic cataract, right eye. PROCEDURE: 1. Cataract extraction with use of phacoemulsification, and placement of intraocular lens, [id number], 17.0 D, right eye. SURGEON: Joseph Anguiano DO ANESTHESIA: Local (Omidria with MAC) COMPLICATIONS: None POSTOPERATIVE CONDITION: Stable INDICATIONS FOR SURGERY: 1. Blurred vision affecting patient's activities of daily living. DESCRIPTION OF PROCEDURE: The patient was seen in the preoperative area and properly identified. The correct operative eye was identified and marked. The patient received topical anesthetic, antibiotics, and topical dilating drops. The patient was then transferred to the operating room. The correct side was re-identified and a time-out was performed. The eye was prepped and draped in a sterile fashion. The eyelids were isolated with Tegaderm tape and the lids were held open with an adjustable speculum. A 1.0mm paracentesis incision was made. Omidria was then injected into the anterior chamber. Viscoelastic was then injected into the anterior chamber through the paracentesis. Using a 2.4mm sharp-tipped keratome, the anterior chamber was entered via a temporal clear cornea incision. A continuous curvilinear capsulorrhexis was created with Utrata forceps. Hydrodissection was performed with BSS on a blunt cannula until the nucleus was able to rotate freely. The crystalline lens was phacoemulsified and aspirated. Irrigation/aspiration was used to remove the cortical material Cohesive viscoelastic was placed into the capsular bag to deepen it. The implant was placed into the capsular bag and allowed to unfold. Placement was confirmed by visualizing the anterior capsulorrhexis. Irrigation/aspiration was used to remove the viscoelastic. The clear corneal incision was hydrated with BSS on a blunt cannula. The lens was well positioned. Intracameral antibiotic was injected into the anterior chamber. The incisions were then tested for leaks and found to be negative. The eye was then palpated for appropriate pressure and adjusted accordingly with BSS. The eyelid speculum was then carefully removed. A shield was placed over the eye. The patient tolerated the procedure well and was discharge to the recovery unit in a stable condition.
== END 2020-08-23 12:35 | disposition home or self-care (01) ==
LOC: M SDC 09:39
PROVIDERS: ATTEND Ophthalmology
DX: H25.11 Age-related nuclear cataract, right eye (principal); I10 Essential (primary) hypertension; E03.9 Hypothyroidism, unspecified; K21.9 Gastro-esophageal reflux disease without esophagitis; J45.909 Unspecified asthma, uncomplicated; Z79.82 Long term (current) use of aspirin; Z79.899 Other long term (current) drug therapy; Z88.0 Allergy status to penicillin; Z88.1 Allergy status to other antibiotic agents; Z85.3 Personal history of malignant neoplasm of breast; Z92.21 Personal history of antineoplastic chemotherapy; Z92.3 Personal history of irradiation
CPT/HCPCS: 66984; J1097; J2250; J3010

== ENCOUNTER → 2022-04-01 | Outpatient (REF) | payer BC ==
[~2022-04-01] MED LIST changes: -DUOVISC (0.50ML VISCOAT/0.55ML PROVISC) OPHTH KIT As Ordered ONE; -MIDAZOLAM INJ 2MG/2ML VIAL (J2250 PER 1MG) As Ordered ONE; -OFLOXACIN 0.3 % (OCUFLOX) OPTH SOL 5ML OD ONE; -OMEP-221; +OMEP40CA5; -PHENYLEPHRINE 2.5% OPHTH SOL 2ML OD ONE; -POVIDONE-IODINE 5% OPHTH PREP SOL 30ML As Ordered ONE; -PROPARACAINE 0.5% OPHTH SOL 15ML OD ONE; -TROPICAMIDE 1% OPHTH SOLN 2ML OD ONE; -fentaNYL 100 MCG/2 ML INJECTION (J3010) As Ordered ONE
[2022-04-01 13:31] LABS: BASO % 0.5 % (0.0-1.0); EOS # 0.3 10^3/uL (0.0-0.5); EOS % 3.4 % (0.0-3.0); HEMATOCRIT 42.3 % (36.0-47.0); HEMOGLOBIN 13.4 g/dl (12.0-15.5); LYMPH # 1.7 10^3/uL (1.5-5.0); LYMPH % 22.5 % (24.0-44.0); MEAN CORPUSCULAR HEMOGLOBIN 28.7 pg (27.0-33.0); MEAN CORPUSCULAR HGB CONC 31.7 g/dl (32.0-36.5); MEAN CORPUSCULAR VOLUME 90.6 fl (80.0-96.0); MONO # 0.9 10^3/uL (0.0-0.8); MONO % 11.8 % (2.0-8.0); NEUTROPHILS # 4.7 10^3/uL (1.5-8.5); NEUTROPHILS % 61.7 % (36.0-66.0); PLATELET COUNT, AUTOMATED 248 10^3/uL (150-450); RED BLOOD COUNT 4.67 10^6/uL (4.00-5.40); WHITE BLOOD COUNT 7.6 10^3/uL (4.0-10.0)
[2022-04-01 14:12] LABS: ALBUMIN 4.1 GM/DL (3.2-5.2); ALT/SGPT 18 U/L (12-78); BILIRUBIN,TOTAL 0.6 MG/DL (0.2-1.0); BLOOD UREA NITROGEN 12 MG/DL (7-18); CALCIUM LEVEL 9.6 MG/DL (8.8-10.2); CARBON DIOXIDE LEVEL 30 MEQ/L (21-32); CHLORIDE LEVEL 104 MEQ/L (98-107); CHOLESTEROL LEVEL 184 MG/DL (<200); CHOLESTEROL RISK RATIO 3.172 (<5); CREATININE FOR GFR 0.97 MG/DL (0.55-1.30); GLOMERULAR FILTRATION RATE > 60.0 (>45); GLUCOSE, FASTING 111 MG/DL (70-100); HDL CHOLESTEROL 58 MG/DL (>40); LDL CHOLESTEROL 88 MG/DL (<100); MAGNESIUM LEVEL 2.3 MG/DL (1.8-2.4); NON-HDL-C 126 MG/DL; POTASSIUM SERUM 4.1 MEQ/L (3.5-5.1); SODIUM LEVEL 138 MEQ/L (136-145); TOTAL PROTEIN 7.4 GM/DL (6.4-8.2); TRIGLYCERIDES LEVEL 190 MG/DL (<150)
[2022-04-01 14:39] LABS: TOTAL 25(OH) VITAMIN D 24.3 NG/ML (30.0-100.0)
[2022-04-01 14:40] LABS: VITAMIN B12 LEVEL 345 PG/ML (247-911)
== END ==
LOC: M LABDRWAD 12:49
PROVIDERS: ATTEND Family Medicine
DX: E78.5 Hyperlipidemia, unspecified (principal); E03.9 Hypothyroidism, unspecified; J45.998 Other asthma; E55.9 Vitamin D deficiency, unspecified; K21.9 Gastro-esophageal reflux disease without esophagitis; Z79.899 Other long term (current) drug therapy

== ENCOUNTER → 2023-04-28 | Outpatient (REF) | payer BC ==
[2023-04-28 13:37] LABS: ALKALINE PHOSPHATASE 116 U/L (46-116); ALT/SGPT 16 U/L (7.0-40); AST/SGOT 14 U/L (<34); BILIRUBIN,TOTAL 0.4 MG/DL (0.3-1.2); BLOOD UREA NITROGEN 17 MG/DL (9-23); CALCIUM LEVEL 9.2 MG/DL (8.3-10.6); CARBON DIOXIDE LEVEL 31 MMOL/L (20-31); CHLORIDE LEVEL 104 MMOL/L (98-107); CHOLESTEROL LEVEL 159 MG/DL (<200); CREATININE FOR GFR 0.67 MG/DL (0.55-1.30); GLOMERULAR FILTRATION RATE > 60.0 (>45); GLUCOSE, FASTING 79 MG/DL (74-106); HDL CHOLESTEROL 54.8 MG/DL (>40); LDL CHOLESTEROL 69.2 MG/DL (<100); NON-HDL-C 104.2 MG/DL; POTASSIUM SERUM 4.1 MMOL/L (3.5-5.1); SODIUM LEVEL 143 MMOL/L (136-145); TOTAL PROTEIN 7.3 G/DL (5.7-8.2); TRIGLYCERIDES LEVEL 175 MG/DL (<150)
[2023-04-28 13:38] LABS: BASO # 0.1 10^3/uL (0.0-0.2); BASO % 0.4 % (0.0-1.0); EOS # 0.3 10^3/uL (0.0-0.5); EOS % 2.3 % (0.0-3.0); HEMATOCRIT 43.6 % (36.0-47.0); HEMOGLOBIN 13.8 g/dl (12.0-15.5); LYMPH # 2.2 10^3/uL (1.5-5.0); LYMPH % 18.8 % (24.0-44.0); MEAN CORPUSCULAR HEMOGLOBIN 29.4 pg (27.0-33.0); MEAN CORPUSCULAR HGB CONC 31.7 g/dl (32.0-36.5); MEAN CORPUSCULAR VOLUME 92.8 fl (80.0-96.0); MONO # 1.3 10^3/uL (0.0-0.8); MONO % 10.8 % (2.0-8.0); NEUTROPHILS # 7.9 10^3/uL (1.5-8.5); NEUTROPHILS % 67.4 % (36.0-66.0); PLATELET COUNT, AUTOMATED 287 10^3/uL (150-450); THYROID STIMULATING HORMONE 1.952 uIU/ML (0.55-4.78); WHITE BLOOD COUNT 11.7 10^3/uL (4.0-10.0)
[2023-04-28 13:39] LABS: FREE T4 1.23 NG/DL (0.89-1.76)
== END ==
LOC: M LABDRWAD 13:08
PROVIDERS: ATTEND Family Medicine
DX: E03.9 Hypothyroidism, unspecified (principal); E78.5 Hyperlipidemia, unspecified; R73.9 Hyperglycemia, unspecified

== ENCOUNTER → 2024-05-02 | Outpatient (REF) | payer BC ==
[~2024-05-02] MED LIST changes: +METO200T15 PO; -METO200T28 PO
[2024-05-02 13:57] LABS: BASO # 0.1 10^3/uL (0.0-0.2); BASO % 0.7 % (0.0-1.0); EOS # 0.3 10^3/uL (0.0-0.5); EOS % 4.7 % (0.0-3.0); HEMOGLOBIN 12.7 g/dl (12.0-15.5); LYMPH # 1.5 10^3/uL (1.5-5.0); LYMPH % 22.5 % (24.0-44.0); MEAN CORPUSCULAR HEMOGLOBIN 29.4 pg (27.0-33.0); MEAN CORPUSCULAR HGB CONC 31.8 g/dl (32.0-36.5); MEAN CORPUSCULAR VOLUME 92.6 fl (80.0-96.0); MONO # 0.9 10^3/uL (0.0-0.8); MONO % 12.6 % (2.0-8.0); NEUTROPHILS % 59.4 % (36.0-66.0); PLATELET COUNT, AUTOMATED 270 10^3/uL (150-450); RED BLOOD COUNT 4.32 10^6/uL (4.00-5.40); WHITE BLOOD COUNT 6.8 10^3/uL (4.0-10.0)
[2024-05-02 13:58] LABS: ALBUMIN 3.6 G/DL (3.2-5.2); ALKALINE PHOSPHATASE 101 U/L (46-116); ALT/SGPT 15 U/L (7.0-40); AST/SGOT 9 U/L (<34); BILIRUBIN,TOTAL 0.5 MG/DL (0.3-1.2); BLOOD UREA NITROGEN 15 MG/DL (9-23); CALCIUM LEVEL 9.7 MG/DL (8.3-10.6); CARBON DIOXIDE LEVEL 31 MMOL/L (20-31); CHLORIDE LEVEL 107 MMOL/L (98-107); CHOLESTEROL LEVEL 167 MG/DL (<200); CHOLESTEROL RISK RATIO 3.71 (<5); GLOMERULAR FILTRATION RATE > 60.0 (>45); GLUCOSE, FASTING 112 MG/DL (74-106); LDL CHOLESTEROL 96.4 MG/DL (<100); SODIUM LEVEL 142 MMOL/L (136-145); TOTAL PROTEIN 6.9 G/DL (5.7-8.2); TRIGLYCERIDES LEVEL 128 MG/DL (<150)
== END ==
LOC: M LABDRWAD 12:41
PROVIDERS: ATTEND Family Medicine
DX: E78.5 Hyperlipidemia, unspecified (principal); E03.9 Hypothyroidism, unspecified

== ENCOUNTER → 2025-02-17 | Outpatient (CLI) | payer BC ==
[2025-02-17 14:49] LABS: FREE T4 1.48 NG/DL (0.89-1.76)
[2025-02-17 14:50] LABS: RHEUMATOID FACTOR QUANT 5.1 IU/ML (<14)
[2025-02-17 14:52] LABS: IMMUNOGLOBULIN E 485.8 IU/ML (0-378)
[2025-02-17 14:53] LABS: THYROGLOBULIN ANTIBODY 38.0 U/ML (<60.0); THYROID PEROXIDASE ANTIBODY 38.0 U/ML (<60.0)
[2025-02-21 14:06] LABS: IgG SERUM (part of Subclasses) 830 mg/dL (600-1540)
[2025-02-21 23:50] LABS: ANTI TETANUS ANTIBODY 1.63 IU/mL (>=0.10)
[2025-02-23 16:46] LABS: PNEUMOCOCCAL AB TYPE 1 27.6 (>=1.0); PNEUMOCOCCAL AB TYPE 12 < 0.3 (>=1.0); PNEUMOCOCCAL AB TYPE 14 5.7 (>=1.0); PNEUMOCOCCAL AB TYPE 17 22.7 (>=1.0); PNEUMOCOCCAL AB TYPE 19 0.8 (>=1.0); PNEUMOCOCCAL AB TYPE 2 2.3 (>=1.0); PNEUMOCOCCAL AB TYPE 20 2.9 (>=1.0); PNEUMOCOCCAL AB TYPE 22 0.5 (>=1.0); PNEUMOCOCCAL AB TYPE 23 0.8 (>=1.0); PNEUMOCOCCAL AB TYPE 26 6.0 (>=1.0); PNEUMOCOCCAL AB TYPE 3 7.0 (>=1.0); PNEUMOCOCCAL AB TYPE 34 < 0.3 (>=1.0); PNEUMOCOCCAL AB TYPE 4 < 0.3 (>=1.0); PNEUMOCOCCAL AB TYPE 43 0.3 (>=1.0); PNEUMOCOCCAL AB TYPE 5 10.2 (>=1.0); PNEUMOCOCCAL AB TYPE 51 < 0.3 (>=1.0); PNEUMOCOCCAL AB TYPE 54 1.3 (>=1.0); PNEUMOCOCCAL AB TYPE 56 22.3 (>=1.0); PNEUMOCOCCAL AB TYPE 57 4.4 (>=1.0); PNEUMOCOCCAL AB TYPE 68 < 0.3 (>=1.0); PNEUMOCOCCAL AB TYPE 70 8.3 (>=1.0); PNEUMOCOCCAL AB TYPE 8 3.6 (>=1.0); PNEUMOCOCCAL AB TYPE 9 2.2 (>=1.0)
[2025-02-24 00:17] LABS: MYCOPLASMA PNEUMONIAE IGG <= 0.90 (<=0.90); MYCOPLASMA PNEUMONIAE IGM 33.0 U/mL (<770)
[2025-02-24 00:45] LABS: IMMUNOGLOBULIN A CELIAC 179 mg/dL (70-320); UNITSIGA FOR GLIADIN IGA < 1.0 U/mL; UNITSIGG FOR GLIADIN IGG < 1.0 U/mL
== END ==
LOC: M LABDRWAD 08:53
PROVIDERS: ATTEND Nurse Practitioner Family
DX: J30.9 Allergic rhinitis, unspecified (principal); E55.9 Vitamin D deficiency, unspecified; R05.9 Cough, unspecified

== ENCOUNTER → 2025-05-05 | Outpatient (CLI) | payer BC ==
[2025-05-05 13:39] LABS: BASO # 0.1 10^3/uL (0.0-0.2); BASO % 0.7 % (0.0-1.0); EOS # 0.4 10^3/uL (0.0-0.5); EOS % 3.9 % (0.0-3.0); LYMPH # 1.8 10^3/uL (1.5-5.0); LYMPH % 18.8 % (24.0-44.0); MONO # 1.2 10^3/uL (0.0-0.8); MONO % 12.4 % (2.0-8.0); NEUTROPHILS # 6.0 10^3/uL (1.5-8.5); NEUTROPHILS % 64.0 % (36.0-66.0); PLATELET COUNT, AUTOMATED 261 10^3/uL (150-450)
[2025-05-05 13:45] LABS: ALT/SGPT 17.0 U/L (7.0-40); AST/SGOT 16.0 U/L (<34); CALCIUM LEVEL 9.2 MG/DL (8.3-10.6); CARBON DIOXIDE LEVEL 29.0 MMOL/L (20-31); CHLORIDE LEVEL 100.0 MMOL/L (98-107); CHOLESTEROL LEVEL 166.0 MG/DL (<200); CHOLESTEROL RISK RATIO 2.91 (<5); CREATININE FOR GFR 0.75 MG/DL (0.55-1.30); GLOMERULAR FILTRATION RATE 88.9 (>45); LDL CHOLESTEROL 84.2 MG/DL (<100); NON-HDL-C 109.0 MG/DL; POTASSIUM SERUM 4.0 MMOL/L (3.5-5.1); SODIUM LEVEL 141.0 MMOL/L (136-145); TRIGLYCERIDES LEVEL 124.0 MG/DL (<150)
[2025-05-05 13:46] LABS: FREE T4 1.49 NG/DL (0.89-1.76)
== END ==
LOC: M LABDRWAD 08:58
PROVIDERS: ATTEND Family Medicine
DX: E78.5 Hyperlipidemia, unspecified (principal); E03.9 Hypothyroidism, unspecified